=== PATIENT | female | born 1980 | race African-American/Black ===

== ENCOUNTER → 2018-08-31 13:18 | Outpatient (CLI) | payer BC, SELFPAY ==
--- NOTE | 2018-08-31 13:22 | US_ITS ---
US transvaginal HISTORY: Heavy vaginal bleeding ITS.REASON: US T/V- Abnormal Bleeding ORDERING PHYSICIAN: Murali Lakhani MD PATIENT AGE: 38 years Comparison: None FINDINGS: The uterus is retroverted and measures 7.7 x 5 x 6.2 cm. There is a lobular area of isoechogenicity in the mid aspect of the uterus measuring approximately 1 x 1 cm. There is fluid-filled endometrial canal which measures 1.5 cm in thickness. The canal measures 2.9 cm in width. The left ovary is 3.4 x 2 cm. There are small follicles. Blood flow is present. The right ovary is 2.7 x 1.8 cm and contains small follicles with blood flow noted. No cul-de-sac fluid evident. IMPRESSION: Lobular isoechoic nodule noted within the uterine canal measuring 1 cm. Endometrial canal is fluid-filled and is dilated. This finding could be due to an endometrial polyp. Retained products of conception or a blood clot is also a consideration.
== END ==
PROVIDERS: PCP Family Medicine; Visit Provider Nurse Practitioner Obstetrics & Gynecology
DX: N93.9 Abnormal uterine and vaginal bleeding, unspecified (principal)
CPT/HCPCS: 76830

== ENCOUNTER → 2018-09-07 12:08 | Outpatient (CLI) | payer BC, SELFPAY ==
[2018-09-07 12:38] LABS: Basophils % 0.2 % (0.1-2.0); Eosinophils # 0.1 K/mm3 (0.0-0.4); Eosinophils % 3.5 % (0.1-12.0); Hematocrit 32.8 % (37.0-47.0); Hemoglobin 9.8 g/dL (12.2-16.2); Lymphocytes # 1.4 K/mm3 (0.7-4.5); Lymphocytes % 34.4 % (10-50); Mean Corpuscular HGB Conc 30.1 g/dL (31.8-35.4); Mean Corpuscular Hemoglobin 22.4 pg (27.0-31.2); Mean Corpuscular Volume 74.5 fl (81-99); Mean Platelet Volume 7.2 fl (7.4-10.4); Monocytes # 0.2 K/mm3 (0.1-1.0); Monocytes % 5.8 % (1.7-9.3); Neutrophils # 2.2 K/mm3 (1.8-7.8); Neutrophils % 56.1 % (37.0-80.0); Platelet Count 391 K/mm3 (142-424); Red Cell Distribution Width 17.7 % (11.5-17.5); White Blood Count 3.9 K/mm3 (4.8-10.8)
[2018-09-07 13:25] LABS: HCG Qualitative, Serum Negative (Negative)
[2018-09-07 13:40] LABS: Anion Gap 12.8 mEq/L (5-15); Blood Urea Nitrogen 12 mg/dL (7-18); Calcium 9.2 mg/dL (8.5-10.1); Carbon Dioxide 26 mmol/L (21.0-32.0); Chloride 105 mmol/L (98-107); Creatinine,Serum 0.57 mg/dL (0.55-1.02); Estimated Glomerular Filt Rate 119 ml/min (>60); GFR (African American) 144 ML/MIN (>60); Glucose 87 mg/dL (74-106); Potassium 3.8 mmoL/L (3.5-5.1); Sodium 140 mmol/L (136-145); T4 (Thyroxine) 7.3 ug/dl (4.7-13.3); Triiodothryronine (T3) Uptake 28 % (31-39)
== END ==
PROVIDERS: Visit Provider Nurse Practitioner Obstetrics & Gynecology
DX: Z01.818 Encounter for other preprocedural examination (principal); L65.9 Nonscarring hair loss, unspecified; R53.82 Chronic fatigue, unspecified
CPT/HCPCS: 36415; 80048; 84436; 84443; 84479; 84481; 84703; 85025

== ENCOUNTER 2020-08-10 19:19 | Emergency (ER) | payer BC, SELFPAY ==
[2020-08-10 19:35] VITALS: BP 109/89; PULSE 87; RESP 20; TEMP 37; O2SAT 98; BMI 22.4
--- NOTE | 2020-08-10 19:56 | HMH.EDUTC ---
[facility] [place] Clinical Impression: Encounter for laboratory testing for COVID-19 virus Disposition: Home, Self-Care Condition on Discharge: Good Instructions: DI for COVID-19 (Suspected or Confirmed ), Coronavirus Disease 2019, Preventing the Spread of Coronavirus Discharge Instructions Additional Instructions: *Monitor Temp, Over the counter Motrin or Tylenol as directed/as needed Tylenol every 4 hours and Motrin every 6 hours (as long as your family doctor has told you that you can take it) for fever or pain. and straight to ER if unable to lower temp less than 101.0 after medication given Follow up IMMEDIATELY for new or worsening symptoms or no Noticeable improvement over the next 48-72 hours. 911 for difficulty breathing or swallowing You were tested for today for COVID19 your test result should be back in the next 24-48 hours, you may call to the [facility] to see if your test results are back in the next 48 hours [phone] [facility] hours are 9am-9pm You was given a handout with instructions for Self Quarantine and Self isolation for while you wait on test results and what to do if they are positive If you are positive the Health Dept will be contacting you also Referrals: Jean Claude Leal MD [Primary Care Provider] - As needed Time of Disposition: 19:56 Medical Decision Making - Juan Inquiry Pt receiving controlled substance: No Juan was queried for this patient: No Vital Signs: 08/10/20 19:35 Temperature 98.6 F Temperature Source Oral Pulse Rate [Right Brachial] 87 Respiratory Rate 20 Blood Pressure [Right Arm] 109/89 L Blood Pressure Mean [Right Arm] 95 Blood Pressure Source [Right Arm] Automatic Cuff Blood Pressure Position [Right Arm] Sitting 02 Sat by Pulse Oximetry 98 Oxygen Delivery Method Room Air Orders (Tests/Meds): ORDERS Category Date Time Status Covid-19 Nasal PCR ([facility]) Routine Lab 08/10/20 19:30 Received [facility] [place] HPI - General Stated complaint: Covid 19 Test Time Seen by Provider: 08/10/20 19:56 Mode of Arrival: Ambulatory Source of Information: Patient Limitations: No Limitations Description of Symptoms (Recalled from Triage Doc. by RN): REQUESTING COVID TEST; DENIES EXPOSURE OR SYMPTOMS HEENT Symptoms (Recalled from RN notes): No Resp Symptoms (Recalled from RN notes): No Skin Symptoms (Recalled from RN notes): No MS Symptoms (Recalled from RN notes): No Functional Status (Recalled from RN notes): WNL - History of Present Illness Provider Complaint: Patient states that she wanted to get tested for COVID States that she has not had any symptoms and no known exposures but she took her son to a college and was around some people that she didnt know so she wanted to get tested - Related Data Home Medications Medication Instructions Recorded Confirmed buspirone 7.5 mg tablet 7.5 mg PO DAILY 30 Days #60 tab 08/31/18 09/23/18 ferrous sulfate 325 mg (65 mg 650 mg PO DAILY tab 08/31/18 09/23/18 iron) tablet norethindrone 1 mg-ethin. 1 cap PO DAILY 09/07/18 09/23/18 estradiol 20 mcg (24)-iron 75 mg (4) capsule Allergies Allergy/AdvReac Type Severity Reaction Status Date / Time No Known Allergies Allergy Verified 09/23/18 10:45 - Worker's Comp Is this a Worker's Comp case?: No [facility] History - Hepatitis A Screen Drug use history?: No High risk sexual behaviors?: No History of sexually transmitted infection?: No Currently employed?: No Childcare worker?: No Do you have indoor plumbing?: Yes Do you have electricity?: Yes Attestation statement:: This patient has been screened for Hepatitis A risk factors. I have reviewed the patient's past medical history: Yes Medical History: Reports:: Anxiety, Depression Denies:: Cancer, Diabetes Mellitus Type 1, Diabetes Mellitus Type 2, Heart Murmur, Internal Pacemaker, MRSA, Seizures Other Medical History: Reports: Anemia. Denies: Blood Transfusion Reaction Comment: Intracranial Bleed 2010 Other Surgeries: Yes:
[2020-08-10 19:59] VITALS: BP 109/89; PULSE 87; RESP 20; TEMP 37; O2SAT 98
== END 2020-08-10 20:00 | disposition home or self-care (01) ==
PROVIDERS: Emergency Provider Nurse Practitioner; PCP Family Medicine
DX: Z20.822 Contact with and (suspected) exposure to COVID-19 (principal); F41.8 Other specified anxiety disorders
CPT/HCPCS: 99202; G0463; U0003

== ENCOUNTER 2020-10-08 14:45 | Emergency (ER) | payer BC, SELFPAY ==
[2020-10-08 14:50] VITALS: BP 114/87; PULSE 60; RESP 14; TEMP 37.1; O2SAT 99; BMI 23.3
--- NOTE | 2020-10-08 15:24 | HMH.EDUTC ---
[facility] Disposition Clinical Impression: Exposure to COVID-19 virus, Viral syndrome Disposition: Home, Self-Care Condition on Discharge: Good Instructions: Preventing the Spread of Coronavirus Discharge Instructions Additional Instructions: Drink plenty of fluids. Take tylenol or ibuprofen for pain or fever. Take the medications as directed. Follow up with your regular doctor. GO TO THE ER FOR ANY WORSENING SYMPTOMS Referrals: Jean Claude Leal MD [Primary Care Provider] - Time of Disposition: 15:53 Medical Decision Making - Medical Records Medical records reviewed: No: I reviewed the patient's medical records. - Juan Inquiry Pt receiving controlled substance: No Vital Signs: 10/08/20 14:50 Temperature 98.7 F Temperature Source Oral Pulse Rate [Right Brachial] 60 Respiratory Rate 14 Blood Pressure [Right Arm] 114/87 Blood Pressure Mean [Right Arm] 96 Blood Pressure Source [Right Arm] Automatic Cuff Blood Pressure Position [Right Arm] Sitting 02 Sat by Pulse Oximetry 99 Oxygen Delivery Method Room Air Orders (Tests/Meds): ORDERS Category Date Time Status Covid-19 Nasal PCR ([facility]) Routine Lab 10/08/20 15:00 Received [facility] HPI - General Stated complaint: cov test Time Seen by Provider: 10/08/20 15:24 Mode of Arrival: Ambulatory Source of Information: Patient Limitations: No Limitations Description of Symptoms (Recalled from Triage Doc. by RN): COVID TEST D/T EXPOSURE. C/O HEADACHE AND SORE THROAT HEENT Symptoms (Recalled from RN notes): Yes Resp Symptoms (Recalled from RN notes): No Skin Symptoms (Recalled from RN notes): No MS Symptoms (Recalled from RN notes): No Functional Status (Recalled from RN notes): WNL - History of Present Illness Provider Complaint: Her son tested positive for covid yesterday. She states that she has had a headache for the past 2 days. She denies any fever or chills. - Related Data Home Medications Medication Instructions Recorded Confirmed buspirone 7.5 mg tablet 7.5 mg PO DAILY 30 Days #60 tab 08/31/18 09/23/18 ferrous sulfate 325 mg (65 mg 650 mg PO DAILY tab 08/31/18 09/23/18 iron) tablet norethindrone 1 mg-ethin. 1 cap PO DAILY 09/07/18 09/23/18 estradiol 20 mcg (24)-iron 75 mg (4) capsule Allergies Allergy/AdvReac Type Severity Reaction Status Date / Time No Known Allergies Allergy Verified 09/23/18 10:45 - Worker's Comp Is this a Worker's Comp case?: No [facility] History - Hepatitis A Screen Drug use history?: No High risk sexual behaviors?: No History of sexually transmitted infection?: No Currently employed?: No Childcare worker?: No Do you have indoor plumbing?: Yes Do you have electricity?: Yes Attestation statement:: This patient has been screened for Hepatitis A risk factors. I have reviewed the patient's past medical history: Yes Medical History: Reports:: Anxiety, Depression Denies:: Cancer, Diabetes Mellitus Type 1, Diabetes Mellitus Type 2, Heart Murmur, Internal Pacemaker, MRSA, Seizures Other Medical History: Reports: Anemia. Denies: Blood Transfusion Reaction Comment: Intracranial Bleed 2009 Other Surgeries: Yes: , Tubal Ligation. 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
[2020-10-08 15:54] VITALS: BP 114/87; PULSE 60; RESP 14; TEMP 37.1; O2SAT 99
== END 2020-10-08 16:00 | disposition home or self-care (01) ==
PROVIDERS: Emergency Provider Nurse Practitioner Family; PCP Family Medicine
DX: Z20.822 Contact with and (suspected) exposure to COVID-19 (principal); B34.9 Viral infection, unspecified; F41.8 Other specified anxiety disorders
CPT/HCPCS: 99202; G0463; U0003

== ENCOUNTER → 2021-01-29 17:11 | Outpatient (CLI) | payer BC, SELFPAY ==
--- NOTE | 2021-01-29 17:23 | XR_ITS ---
PROCEDURE: XR TIBIA FIBULA RT 2V CLINICAL INDICATION: INJURY OF RIGHT LOWER LEG COMPARISON: No exams were available for comparison FINDINGS: No fracture or dislocation. No lytic or blastic change. There is normal mineralization. The joint spaces are well-preserved. No significant degenerative/arthritic changes. No erosive changes evident. Other findings:Small well-circumscribed soft tissue calcification present in the subcutaneous region medial to the medial femoral condyle and may be due to phleboliths IMPRESSION: No acute findings. Dictated by: Alessandro Pompa MD 01/29/2021 17:34 Alessandro Pompa MD in [place] 01/29/2021 17:34
== END ==
PROVIDERS: PCP Nurse Practitioner Family; Visit Provider Nurse Practitioner Family
DX: S89.91XA Unspecified injury of right lower leg, initial encounter (principal)
CPT/HCPCS: 73590

== ENCOUNTER 2021-04-28 15:39 | Emergency (ER) | payer BC, SELFPAY ==
[2021-04-28 16:05] VITALS: BP 108/74; PULSE 77; RESP 18; TEMP 36.7; O2SAT 99; BMI 24.2
--- NOTE | 2021-04-28 16:47 | HMH.EDUTC ---
[facility] [place] Disposition Clinical Impression: Poison rachel dermatitis Disposition: Home, Self-Care Condition on Discharge: Good Instructions: DI for Poison Rachel Allergy, Poison Rachel, Poison [place], Poison [place] Additional Instructions: Use topical steroid cream on area Over the counter Benadryl may help with itching Over the counter calamine lotion may help with itching and dry up the rash Return if needed Follow up with Family Doctor if rash worsens or continues to spread Referrals: Gloria Leonardo APRN [Primary Care Provider] - As needed Time of Disposition: 17:00 Medical Decision Making - Juan Inquiry Pt receiving controlled substance: No Juan was queried for this patient: No Vital Signs: 04/28/21 16:05 Temperature 98.1 F Temperature Source Oral Pulse Rate [Left Brachial] 77 Respiratory Rate 18 Blood Pressure [Left Arm] 108/74 L Blood Pressure Mean [Left Arm] 85 Blood Pressure Source [Left Arm] Automatic Cuff Blood Pressure Position [Left Arm] Sitting 02 Sat by Pulse Oximetry 99 Oxygen Delivery Method Room Air Medical Decision Narrative: Patient states that she has steriod cream at home that they give her for atopic dermatitis and eczema Patient educated that she can use that cream on this area as well for treatment [facility] [place] HPI - General Stated complaint: rash on right wrist Time Seen by Provider: 04/28/21 16:47 Mode of Arrival: Ambulatory Source of Information: Patient Limitations: No Limitations Description of Symptoms (Recalled from Triage Doc. by RN): PATIENT C/O ITCHY RASH TO RIGHT WRIST THAT STARTED WEDNESDAY EVENING AND BECAME WORSE ON WEDNESDAY HEENT Symptoms (Recalled from RN notes): No Resp Symptoms (Recalled from RN notes): No Skin Symptoms (Recalled from RN notes): Yes MS Symptoms (Recalled from RN notes): No Functional Status (Recalled from RN notes): WNL - History of Present Illness Provider Complaint: Patient states she noticed she had rash on her right wrist that started on Wednesday it was fluid filled and itchy States that everyone has told her that it looks like poison rachel but she wasnt sure she has never had it before States that today it was still itching so she came in to get it looked at - Related Data Home Medications Medication Instructions Recorded Confirmed Topiramate [Topamax] 25 mg PO DAILYP PRN 04/28/21 04/28/21 Allergies Allergy/AdvReac Type Severity Reaction Status Date / Time No Known Allergies Allergy Verified 09/23/18 10:45 - Worker's Comp Is this a Worker's Comp case?: No [facility] History - Hepatitis A Screen Drug use history?: No High risk sexual behaviors?: No History of sexually transmitted infection?: No Currently employed?: No Childcare worker?: No Do you have indoor plumbing?: Yes Do you have electricity?: Yes Attestation statement:: This patient has been screened for Hepatitis A risk factors. I have reviewed the patient's past medical history: Yes Medical History: Reports:: Anxiety, Depression Denies:: Cancer, Diabetes Mellitus Type 1, Diabetes Mellitus Type 2, Heart Murmur, Internal Pacemaker, MRSA, Seizures Other Medical History: Reports: Anemia. Denies: Blood Transfusion Reaction Comment: Intracranial Bleed 2009 Other Surgeries: Yes: , Tubal Ligation. 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
[2021-04-28 16:53] VITALS: BP 108/74; PULSE 77; RESP 18; TEMP 36.7; O2SAT 99
== END 2021-04-28 17:05 | disposition home or self-care (01) ==
PROVIDERS: Emergency Provider Nurse Practitioner; PCP Nurse Practitioner Family
DX: L23.7 Allergic contact dermatitis due to plants, except food (principal); F41.8 Other specified anxiety disorders
CPT/HCPCS: 99202; G0463

== ENCOUNTER → 2021-07-28 16:16 | Outpatient (CLI) | payer BC, SELFPAY | PROVIDERS: PCP Family Medicine; Visit Provider Nurse Practitioner | DX: U07.1 COVID-19 (principal) | CPT/HCPCS: C9803; U0003; U0005 ==

== ENCOUNTER 2022-02-24 13:34 | Emergency (ER) | payer BC, SELFPAY ==
[2022-02-24 14:26] VITALS: BP 111/72; PULSE 84; RESP 16; TEMP 36.8; O2SAT 100; BMI 23.3
[2022-02-24 14:26] LABS: Adenovirus,PCR Not Detected (NotDetected); Bordetella Pertussis Not Detected (NotDetected); Chlamydophila Pneumoniae, PCR Not Detected (NotDetected); Coronavirus 229E Not Detected (NotDetected); Coronavirus NL63 Not Detected (NotDetected); Coronavirus OC43 Not Detected (NotDetected); Coronovirus HKU1,PCR Not Detected (NotDetected); Human Metapneumovirus Not Detected (NotDetected); Influenza A, PCR Not Detected (NotDetected); Influenza AH1, 2009 Not Detected (NotDetected); Influenza AH1, PCR Not Detected (NotDetected); Influenza AH3,PCR Not Detected (NotDetected); Influenza B, PCR Not Detected (NotDetected); Mycoplasma Pneumoniae, PCR Not Detected (NotDetected); Parainfluenza 1, PCR Not Detected (NotDetected); Parainfluenza 2, PCR Not Detected (NotDetected); Parainfluenza 3, PCR Not Detected (NotDetected); Parainfluenza 4, PCR Not Detected (NotDetected); Respiratory Syncytial Virus Not Detected (NotDetected); Rhinovirus/Enterovirus Not Detected (NotDetected)
--- NOTE | 2022-02-24 14:29 | HMH.EDUTC ---
[facility] [place] Disposition Clinical Impression: Viral syndrome Sinusitis Qualifiers: Sinusitis location: unspecified location Chronicity: acute Recurrence: non-recurrent Qualified Code(s): J01.90 - Acute sinusitis, unspecified Disposition: Home, Self-Care Condition on Discharge: Good Instructions: DI for Sinusitis, DI for COVID-19 (Suspected or Confirmed ), Preventing the Spread of Coronavirus Discharge Instructions Additional Instructions: Drink plenty of fluids. Take tylenol or ibuprofen for pain or fever. Take the medications as directed. Follow up with your regular doctor. GO TO THE ER FOR ANY WORSENING SYMPTOMS Quarantine until you know the results of your covid-19 test. Notify your school or workplace of your results and follow their instructions regarding return to work/school. Prescriptions: Benzonatate [Benzonatate 100mg cap] 100 mg PO TIDP PRN #30 cap PRN Reason: Cough Transmission Status: Received by [facility] #[id number] predniSONE [Deltasone 10mg tablet] 10 mg PO BID 3 Days #6 tab Transmission Status: Received by [facility] #[id number] Cefdinir [Omnicef 300mg Capsule] 300 mg PO BID #20 cap Transmission Status: Received by [facility] #[id number] Referrals: Jean Claude Leal MD [Primary Care Provider] - Forms: Work/School Release Time of Disposition: 14:31 Medical Decision Making - Medical Records Medical records reviewed: No: I reviewed the patient's medical records. - Juan Inquiry Pt receiving controlled substance: No Vital Signs: 02/24/22 14:26 02/24/22 14:39 Temperature 98.2 F 98.2 F Temperature Source Oral Pulse Rate 84 Pulse Rate [Left] 84 Respiratory Rate 16 16 Blood Pressure 111/72 Blood Pressure [Right Arm] 111/72 Blood Pressure Mean [Right Arm] 85 02 Sat by Pulse Oximetry 100 Orders (Tests/Meds): ORDERS Category Date Time Status Full Resp Panel w/COVID ([facility]) Routine Lab 02/24/22 14:17 Received [facility] [place] HPI - General Stated complaint: covid test Time Seen by Provider: 02/24/22 14:29 Mode of Arrival: Ambulatory Source of Information: Patient Limitations: No Limitations Description of Symptoms (Recalled from Triage Doc. by RN): patient comes in for covid test. sister tested positive on wednesday. patient has had body aches, chills, sore throat, headache, cough since wednesday HEENT Symptoms (Recalled from RN notes): Yes Resp Symptoms (Recalled from RN notes): Yes Skin Symptoms (Recalled from RN notes): No MS Symptoms (Recalled from RN notes): No Functional Status (Recalled from RN notes): n/a - History of Present Illness Provider Complaint: She states that she has felt bad for the past 3 days. She has had sore throat, chills, body aches and sinus congestion. She had a negative covid-19 and strep test done yesterday. - Related Data Home Medications Medication Instructions Recorded Confirmed Topiramate [Topamax] 25 mg PO DAILYP PRN 04/28/21 04/28/21 Previous Rx's Medication Instructions Recorded Benzonatate [Benzonatate 100mg 100 mg PO TIDP PRN #30 cap 02/24/22 cap] Cefdinir [Omnicef 300mg Capsule] 300 mg PO BID #20 cap 02/24/22 predniSONE [Deltasone 10mg tablet] 10 mg PO BID 3 Days #6 tab 02/24/22 Allergies Allergy/AdvReac Type Severity Reaction Status Date / Time No Known Allergies Allergy Verified 02/24/22 14:29 - Worker's Comp Is this a Worker's Comp case?: No [facility] History - Hepatitis A Screen Attestation statement:: This patient has been screened for Hepatitis A risk factors. I have reviewed the patient's past medical history: Yes Medical History: Reports:: Anxiety, Depression Denies:: Cancer, Diabetes Mellitus Type 1, Diabetes Mellitus Type 2, Heart Murmur, Internal Pacemaker, MRSA, Seizures Other Medical History: Reports: Anemia. Denies: Blood Transfusion Reaction Comment: Intracranial Bleed 2009 Other Surgeries: Yes: , Tubal Ligation. No: Pacemaker Amputation: No
[2022-02-24 14:39] VITALS: BP 111/72; PULSE 84; RESP 16; TEMP 36.8
[2022-02-24 21:53] LABS: Coronavirus 19, PCR Detected (NotDetected)
== END 2022-02-24 14:40 | disposition home or self-care (01) ==
PROVIDERS: Emergency Provider Nurse Practitioner Family; PCP Family Medicine
DX: U07.1 COVID-19 (principal); J01.90 Acute sinusitis, unspecified; J02.9 Acute pharyngitis, unspecified; M79.10 Myalgia, unspecified site; R51.9 Headache, unspecified; F32.A Depression, unspecified; F41.9 Anxiety disorder, unspecified; Z79.52 Long term (current) use of systemic steroids; Z82.49 Family history of ischemic heart disease and other diseases of the circulatory system; Z82.5 Family history of asthma and other chronic lower respiratory diseases; Z83.3 Family history of diabetes mellitus
CPT/HCPCS: 87581; 87632; 87798; 99213; C9803; G0463; U0003; U0005

== ENCOUNTER → 2022-08-28 15:40 | Outpatient (CLI) | payer BC, SELFPAY ==
--- NOTE | 2022-08-28 15:43 | MR_ITS ---
PROCEDURE INFORMATION: Exam: MR Head Without Contrast Exam date and time: 08/28/2022 4:07 PM Age: 42 years old Clinical indication: Pain; Headache; Migraine; With aura; Does not respond to medication; Severity not specified; Additional info: Right sided headache. PT also said headaches are migraines and clusters. Nausea associated with them. TECHNIQUE: Imaging protocol: Magnetic resonance imaging of the head without contrast. COMPARISON: BRW/O MRI-BRAIN W/O 11/12/2015 1:39 PM FINDINGS: Brain: Normal. No acute infarct. No hemorrhage. No significant white matter disease. No edema. Cerebral ventricles: Normal. No ventriculomegaly. Bones/joints: Unremarkable. Paranasal sinuses: Normal as visualized. No acute sinusitis. Mastoid air cells: Normal as visualized. No mastoid effusion. Orbital cavities: Unremarkable. Soft tissues: Unremarkable. IMPRESSION: No acute findings.
== END ==
LOC: RAD 15:40
PROVIDERS: PCP Family Medicine; Visit Provider Nurse Practitioner Family
DX: R51.9 Headache, unspecified (principal); R42 Dizziness and giddiness
CPT/HCPCS: 70551

== ENCOUNTER → 2023-01-25 16:26 | Outpatient (CLI) | payer BC, SELFPAY ==
--- NOTE | 2023-01-25 16:29 | CA_ITS ---
FINAL REPORT TECHNIQUE: Color Doppler, duplex Doppler and compression sonography of the right lower extremity venous system was performed. 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 Her right leg will swell from the knee down after working. She denies any recent trauma. Injury to her right leg 1 year ago. No history of DVT. FINDINGS: There is no evidence of deep venous thrombosis from the level of the groin to the calf. The veins are patent and compressible. IMPRESSION: No evidence of deep venous thrombosis right lower extremity. Reviewed, Interpreted and Dictated by Genaro Grossman III, MD Transcribed by Colleen Martines Authenticated and . [facility]
== END ==
LOC: RT 16:27
PROVIDERS: PCP Family Medicine; Visit Provider Nurse Practitioner Family
DX: M79.604 Pain in right leg (principal); M79.89 Other specified soft tissue disorders
CPT/HCPCS: 93971

== ENCOUNTER → 2023-02-15 11:07 | Outpatient (CLI) | payer BC, SELFPAY ==
--- NOTE | 2023-02-15 11:10 | MR_ITS ---
FINAL REPORT TECHNIQUE: Multiplanar and multisequence imaging the right knee was obtained without contrast. CLINICAL HISTORY: SWELLING OF RIGHT LOWER EXTREMITY. POSTERIOR KNEE PAIN FINDINGS: Bones: There is lateral patellar subluxation without dislocation. There is no acute fracture or marrow edema. The joint space is preserved. There are no full thickness cartilage defects. Menisci: There is a horizontal tear at the posterior horn of the medial meniscus. Anterior horn and lateral meniscus are intact. Ligaments: No cruciate or collateral ligament tear is present. Tendons/Muscles: The quadriceps and patellar tendons are within normal limits. The biceps femoris tendon and iliotibial tract are intact. The popliteus tendon is normal. Other: There is no joint effusion. Remaining soft tissues are normal. IMPRESSION: Lateral patellar subluxation. Tear of the posterior horn of the medial meniscus. Reviewed, Interpreted and Dictated by Martha Cerna MD Transcribed by Lory Medeiros Authenticated and [facility]
== END ==
PROVIDERS: PCP Family Medicine; Visit Provider Nurse Practitioner Family
DX: M25.561 Pain in right knee (principal); M25.461 Effusion, right knee; M79.89 Other specified soft tissue disorders
CPT/HCPCS: 73721

== ENCOUNTER 2023-02-16 14:20 | Outpatient (RCR) | payer BC, SELFPAY | END 2023-02-16 15:10 | disposition home or self-care (01) | LOC: PT 14:20 | PROVIDERS: Visit Provider Nurse Practitioner Family | DX: M25.561 Pain in right knee (principal); S83.001A Unspecified subluxation of right patella, initial encounter; S83.281A Other tear of lateral meniscus, current injury, right knee, initial encounter | CPT/HCPCS: 97760 ==

== ENCOUNTER 2023-05-11 16:30 | Outpatient (RCR) | payer BC, SELFPAY | END 2023-05-11 16:35 | disposition home or self-care (01) | LOC: PT 16:30 | PROVIDERS: PCP Family Medicine; Visit Provider Physician Assistant | DX: S83.001A Unspecified subluxation of right patella, initial encounter (principal); M25.561 Pain in right knee; S83.241A Other tear of medial meniscus, current injury, right knee, initial encounter | CPT/HCPCS: 97010; 97014; 97016; 97035; 97110; 97163; 97164; 97530; G0283 ==

== ENCOUNTER 2023-08-30 06:39 | Outpatient (CLI) | payer BC, SELFPAY ==
[2023-08-30 12:34] LABS: Chloride 102 mmol/L (98-107); Sodium 138 mmol/L (136-145)
[2023-08-30 12:35] LABS: Basophils % 0.5 % (0.1-2.0); Eosinophils # 0.1 K/mm3 (0.0-0.4); Eosinophils % 1.8 % (0.1-12.0); Hematocrit 45.1 % (37.0-47.0); Hemoglobin 14.4 g/dL (12.2-16.2); Lymphocytes # 1.3 K/mm3 (0.7-4.5); Lymphocytes % 27.8 % (10-50); Mean Corpuscular HGB Conc 32.1 g/dL (31.8-35.4); Mean Corpuscular Hemoglobin 28.5 pg (27.0-31.2); Mean Platelet Volume 8.3 fl (7.4-10.4); Monocytes # 0.2 K/mm3 (0.1-1.0); Monocytes % 4.9 % (1.7-9.3); Neutrophils # 2.9 K/mm3 (1.8-7.8); Platelet Count 328 K/mm3 (142-424); Red Blood Count 5.06 M/mm3 (4.20-5.40); Red Cell Distribution Width 13.4 % (11.5-17.5); White Blood Count 4.5 K/mm3 (4.8-10.8)
[2023-08-30 12:37] LABS: Alanine Aminotransferase 13 U/L (12-78); Albumin Level 4.3 g/dl (3.5-5.0); Albumin/Globulin Ratio 1.3 (1.1-1.8); Alkaline Phosphatase 44 U/L (38-126); Aspartate Amino Transferase 34 U/L (14-36); Bilirubin,Total 0.5 mg/dl (0.2-1.3); Blood Urea Nitrogen 10 mg/dl (7-17); Calcium 9.6 mg/dl (8.4-10.2); Carbon Dioxide 31 mmol/L (22.0-30.0); Estimated Glomerular Filt Rate 135 ml/min (>60); GFR (African American) 164 ML/MIN (>60); Globulin 3.4 g/dL (1.3-3.2); Glucose 82 mg/dl (74-100); Magnesium 1.9 mg/dl (1.6-2.3); Total Protein,Serum 7.7 g/dl (6.3-8.2)
[2023-08-30 12:48] LABS: C-Reactive Protein 2.4 mg/L (0-4)
[2023-08-30 12:52] LABS: Troponin I < 0.01 ng/ml (0.00-0.034)
[2023-08-30 13:08] LABS: Thyroid Stimulating Hormone 0.55 uIU/mL (0.465-4.68)
[2023-08-30 13:13] LABS: Ferritin 14.4 ng/ml (6.24-137)
[2023-08-30 13:33] LABS: Vitamin B12 656 pg/mL (239-931)
[2023-08-30 13:35] LABS: Hemoglobin A1C 4.8 % (4.0-6.0)
== END 2023-08-30 23:59 ==
LOC: LAB.DROPOF 09-01 06:40
PROVIDERS: PCP Nurse Practitioner Family; Visit Provider Nurse Practitioner Family
DX: I95.9 Hypotension, unspecified (principal); R51.9 Headache, unspecified; D64.9 Anemia, unspecified
CPT/HCPCS: 80053; 82607; 82728; 83036; 83735; 84443; 84484; 85025; 86140

== ENCOUNTER → 2023-09-30 13:14 | Outpatient (CLI) | payer BC, SELFPAY | LOC: SL 13:16 | PROVIDERS: PCP Nurse Practitioner Family; Visit Provider Nurse Practitioner Family | DX: R06.83 Snoring (principal) | CPT/HCPCS: G0399 ==

== ENCOUNTER 2023-10-11 09:20 | Outpatient (CLI) | payer BC, SELFPAY ==
--- NOTE | 2023-10-11 09:28 | CT_ITS ---
FINAL REPORT TECHNIQUE: Multiple axial CT sections were performed from the foramen magnum to the vertex. Coronal reformatted images were also obtained. Precontrast and postcontrast injection images were obtained. This study was performed with technique to keep radiation doses as low as reasonably achievable, (ALARA). Individualized dose reduction techniques using automated exposure control or adjustment of mA and/or kV according to the patient size were employed. CLINICAL HISTORY: hx of hemorrhagic cva, headaches pt c/o migraines FINDINGS: The ventricles are normal in size. There is no evidence of hemorrhage. No masses are identified. No extra-axial fluid collection is seen. The sinuses are normal. No osseous abnormality is seen on the bone window images. Postcontrast images demonstrate no abnormal enhancement. IMPRESSION: Unremarkable CT of the head with and without contrast. Reviewed, Interpreted and Dictated by Genaro Grossman III, MD Transcribed by Kenna Villarreal Authenticated and [facility]
--- NOTE | 2023-10-11 10:09 | CA_ITS ---
APPROVED REPORT EXAM: Comprehensive 2D, Doppler, and color-flow Echocardiogram Television And Radio Repairer: Jazmine Hodgson CRT Ht: 5 ft 5 in Wt: 144lbs BSA: 1.72 BP: 111/69 mmHg Indications: Abnormal ECG, CVA/TIA 2D Dimensions Left Atrium 3.13 cm LVEF (Pryor's) 53.90 % LVOT 1.94 cm (M/F) 1.5-2.5 LV Volume 86.50 mL LA Volume 22.70 mL LA Volume Index 13.20 mL/m2 (M/F) 16-34 EF AP4 57.90 % EF AP2 47.7 % EF BP 53.9 % GL Strain -16.3 % M-Mode Dimensions RVDd 2.52 cm (0.9-2.6) LVDd 4.26 cm (3.5-5.7) Ao Diam 3.13 cm (2.0-3.7) LVDs 2.87 cm (3.5-5.7) IVSd 1.04 cm (0.6-1.1) PWd 0.61 cm (0.6-1.1) EF (Teich) 61.40% FS 32.60% EDV (Teich) 81.30 mL TAPSE 2.29 (<1.7) ESV (Teich) 31.40 mL LV Diastology E Decel Time 222 (160-240 msec) E/A Ratio 1.34 MED E' 10.5 (>= 7 cm/sec) MED A' 7.90 cm/s E'/MED E' Ratio 7.11 (<= 14) LAT E' 13.2 (>= 10 cm/sec) LAT A' 12.50 cm/s E/LAT E' Ratio 5.66 (<= 14) Aortic Valve AoV Peak Arian. 92.0 (50-130 cm/s) AI PHT 391.00 ms AO Peak GR. 3.40 mmHg Mitral Valve MV E Max Arian. 75.0 (40-130 cm/s) MV A Velocity 56.0 (40-130 cm/s) E/A Ratio 1.34 MV Decel. Time 222 (160-240 ms) Tricuspid Valve TR P. Velocity 198.00 cm/s RAP Estimate 10.00 mmHg RVSP 25.70 mmHg Left Ventricle The left ventricle is normal size. The left ventricular systolic function is normal. The left ventricular ejection fraction is within the normal range. There is normal left ventricular wall thickness. There is normal LV segmental wall motion. The left ventricular diastolic function is normal. LVEF is 55%. Right Ventricle The right ventricle is normal size. The right ventricular systolic function is normal. Atria The left atrium size is normal. The right atrium size is normal. There is no Doppler evidence of interatrial shunt. Aortic Valve The aortic valve opens well. Trace aortic regurgitation. There is no aortic valvular stenosis. Mitral Valve The mitral valve is normal in structure. No evidence of mitral valve stenosis. Trace mitral regurgitation. Tricuspid Valve The tricuspid valve leaflets are thin and pliable. Mild tricuspid regurgitation. RVSP is 20-25 mmHg. Pulmonic Valve The pulmonary valve is normal in structure. Trace pulmonic regurgitation. Great Vessels The aortic root is normal in size. The ascending aorta is normal in size. IVC is normal in size and collapses >50% with inspiration. Pericardium There is no pericardial effusion. Other Information Study Quality: Adequate Conclusion Normal biventricular systolic function. Mild TR. RVSP 20-25 mmHg. Electronically signed by : Kaylie España MD 10/12/2023 20:46:44
[2023-10-11] MEDS: SODIUM CHLORIDE 0.9% 10ML SYR (RAD ONLY) 10 ML IV (10:15)
[2023-10-11] MEDS: IOPAMIDOL-300 (61%) 100ML VIAL 100 ML IV (10:15)
== END 2023-10-11 23:59 ==
LOC: RAD 09:21
PROVIDERS: PCP Nurse Practitioner Family; Visit Provider Physician Assistant
DX: Z86.73 Personal history of transient ischemic attack (TIA), and cerebral infarction without residual deficits (principal); R94.31 Abnormal electrocardiogram [ECG] [EKG]; R51.9 Headache, unspecified; W19.XXXA Unspecified fall, initial encounter
CPT/HCPCS: 70470; 93306; Q9967

== ENCOUNTER 2023-11-03 07:50 | Outpatient (CLI) | payer BC, SELFPAY ==
--- NOTE | 2023-11-03 07:51 | MR_ITS ---
FINAL REPORT CLINICAL HISTORY: HARDY/Dizziness w/Hx CVA/Bleed COMPARISON: 08/28/2022 FINDINGS: Multiplanar MR imaging of the brain was performed without and with contrast. There is no evidence of intracranial hemorrhage or mass. No abnormal extra-axial fluid collection is seen. There is a single less than 5 mm in size right frontal white matter focus of signal, that likely represents mild chronic ischemic/gliotic microvascular change, new since the prior exam. This is within normal limits for the patient's age. The ventricular size is within normal limits. There is no evidence of shift of the midline structures. The posterior fossa and brainstem have an unremarkable appearance. No area of abnormal restricted diffusion is identified. No abnormal contrast enhancement is seen. Normal major vessel vascular flow voids are noted. IMPRESSION: No acute intracranial abnormality identified. Single less than 5 mm in size right frontal white matter signal, likely mild chronic ischemic/gliotic microvascular change, normal for the patient's age. No focal enhancement or abnormal signal is otherwise visualized. Reviewed, Interpreted and Dictated by Genaro Grossman III, MD Transcribed by Colleen Martines Authenticated and . [facility]
[2023-11-03] MEDS: SODIUM CHLORIDE 0.9% 10ML SYR (RAD ONLY) 10 ML IV (08:59)
[2023-11-03] MEDS: GADOTERIDOL INJ 17ML SYRINGE 13 ML IV (08:59)
== END 2023-11-03 23:59 ==
LOC: RAD 07:51
PROVIDERS: PCP Nurse Practitioner Family; Visit Provider Specialist
DX: R51.9 Headache, unspecified (principal); Z86.73 Personal history of transient ischemic attack (TIA), and cerebral infarction without residual deficits; W19.XXXA Unspecified fall, initial encounter
CPT/HCPCS: 70553; A9576

== ENCOUNTER 2024-04-17 16:56 | Outpatient (CLI) | payer BC, SELFPAY ==
[2024-04-17 17:57] LABS: Troponin I < 0.01 ng/ml (0.00-0.034)
[2024-04-17 18:02] LABS: Basophils % 0.9 % (0.1-2.0); Eosinophils # 0.2 K/mm3 (0.0-0.4); Hematocrit 44.6 % (37.0-47.0); Hemoglobin 13.2 g/dL (12.2-16.2); Lymphocytes # 1.7 K/mm3 (0.7-4.5); Lymphocytes % 36.6 % (10-50); Mean Corpuscular HGB Conc 29.7 g/dL (31.8-35.4); Mean Corpuscular Hemoglobin 27.2 pg (27.0-31.2); Mean Corpuscular Volume 91.7 fl (81-99); Mean Platelet Volume 7.8 fl (7.4-10.4); Monocytes # 0.2 K/mm3 (0.1-1.0); Neutrophils # 2.5 K/mm3 (1.8-7.8); Neutrophils % 53.5 % (37.0-80.0); Platelet Count 348 K/mm3 (142-424); Red Blood Count 4.87 M/mm3 (4.20-5.40); White Blood Count 4.7 K/mm3 (4.8-10.8)
[2024-04-17 18:12] LABS: Thyroid Stimulating Hormone 1.31 uIU/mL (0.465-4.68)
[2024-04-17 18:16] LABS: Ferritin 8.77 ng/ml (6.24-137)
[2024-04-17 18:50] LABS: 25-OH Vitamin D, Total 17.8 ng/mL (30-100)
[2024-04-17 18:57] LABS: Vitamin B12 463 pg/mL (239-931)
[2024-04-21 18:07] LABS: Vitamin B1 84.6 nmol/L (66.5-200.0)
[2024-04-22 05:29] LABS: Zinc 65 ug/dL (44-115)
[2024-04-22 09:32] LABS: Magnesium,RBC 4.3 mg/dL (3.7-7.0)
[2024-04-22 23:07] LABS: Vitamin B6 11.5 ug/L (3.4-65.2)
== END 2024-04-17 23:59 | disposition home or self-care (01) ==
LOC: LAB 16:57
PROVIDERS: PCP Nurse Practitioner Family; Visit Provider Nurse Practitioner Family
DX: R94.31 Abnormal electrocardiogram [ECG] [EKG] (principal); D50.8 Other iron deficiency anemias; E53.9 Vitamin B deficiency, unspecified; R51.9 Headache, unspecified; R00.2 Palpitations
CPT/HCPCS: 82306; 82607; 82728; 83735; 84207; 84425; 84443; 84484; 84630; 85025

== ENCOUNTER 2024-07-19 16:20 | Outpatient (CLI) | payer BC, SELFPAY ==
[2024-07-19 16:45] LABS: Hematocrit 43.6 % (37.0-47.0); Mean Corpuscular HGB Conc 32.1 g/dL (31.8-35.4); Mean Corpuscular Hemoglobin 27.3 pg (27.0-31.2); Mean Corpuscular Volume 85.2 fl (81-99); Red Blood Count 5.12 M/mm3 (4.20-5.40); White Blood Count 5.6 K/mm3 (4.8-10.8)
[2024-07-19 16:46] LABS: Basophils % 0.5 % (0.1-2.0); Eosinophils # 0.1 K/mm3 (0.0-0.4); Eosinophils % 1.6 % (0.1-12.0); Lymphocytes # 1.9 K/mm3 (0.7-4.5); Lymphocytes % 34.2 % (10-50); Monocytes # 0.3 K/mm3 (0.1-1.0); Monocytes % 5.7 % (1.7-9.3); Neutrophils # 3.3 K/mm3 (1.8-7.8); Neutrophils % 57.8 % (37.0-80.0); Platelet Count 337 K/mm3 (142-424); Red Cell Distribution Width 13.3 % (11.5-17.5)
[2024-07-19 17:15] LABS: 25-OH Vitamin D, Total 34.6 ng/mL (30-100)
[2024-07-19 17:47] LABS: Vitamin B12 559 pg/mL (239-931)
[2024-07-19 21:51] LABS: Ferritin 7.25 ng/ml (6.24-137)
[2024-07-25 01:07] LABS: Magnesium,RBC 4.1 mg/dL (3.7-7.0)
== END 2024-07-19 23:59 | disposition home or self-care (01) ==
LOC: LAB 16:21
PROVIDERS: PCP Nurse Practitioner Family; Visit Provider Nurse Practitioner Family
DX: G43.909 Migraine, unspecified, not intractable, without status migrainosus (principal); D50.8 Other iron deficiency anemias; E53.9 Vitamin B deficiency, unspecified; R79.89 Other specified abnormal findings of blood chemistry
CPT/HCPCS: 36415; 82306; 82607; 82728; 83735; 85025

== ENCOUNTER 2024-08-07 09:04 | Outpatient (CLI) | payer BC, SELFPAY ==
--- NOTE | 2024-08-07 09:05 | MM_ITS ---
PROCEDURE INFORMATION: Exam: US Left Breast, Complete MG Bilateral Diagnostic Breast Tomosynthesis Exam date and time: 08/07/2024 9:27 AM Age: 44 years old Clinical indication: Concern for left breast lump. TECHNIQUE: Imaging protocol: Complete ultrasound of all four quadrants of the left breast and the retroareolar regions, including ultrasound of the axilla when performed. Bilateral Diagnostic tomosynthesis and 2D mammography including computer-aided detection (CAD) when performed. Unilateral or bilateral exam. Triangular marker placed on palpable concern in the left breast with spot compression added. COMPARISON: MG MM DIG MAMM BI DX W/CAD 08/07/2024 8:51 AM FINDINGS: MAMMOGRAPHY: Breast mammogram findings: Breast composition: The breasts are heterogeneously dense, which may obscure small masses. Mass: Scattered bilateral oval masses, which are larger on the right, in the upper inner aspect, about 11-12 o'clock anterior to middle 3rd, 2-6 cm from the nipple, measuring up to 3 cm, CC image [id number] frame 21 and MLO image 1106 for frame 18 and in the upper inner quadrant, anterior to middle 3rd, 2-4 cm from the nipple, cc image 1718 frame 21 and MLO image 1164 frame 40. On the left, corresponding to the palpable concern are 2 oval partly visualized masses, best seen in the MLO projection, measuring 1.3 and 1.0 cm, MLO image 1372 frame 13. Architectural distortion: None. Calcifications: No suspicious calcifications. Asymmetric density: None. Skin thickening: None. Axillary adenopathy: None. ULTRASOUND: Breast ultrasound findings: Left sonography, all 4 quadrants, retroareolar and axilla. At the palpable concern at 2 o'clock 4 cm from the nipple, anechoic avascular cyst measuring 1.2 x 0.8 x 1.3 cm. Scattered subcentimeter simple and complicated avascular at 12 o'clock measuring 0.3 x 0.3 x 0.3 cm; at 12 o'clock 1 cm from the nipple measuring 1.2 x 1.2 x 0.6 cm; at 1 o'clock 6 cm from the nipple measuring 0.6 x 0.5 x 0.6 cm; at 2 o'clock 2 cm from the nipple measuring 0.7 x 0.8 x 0.7 cm; at 5 o'clock 1 cm from the nipple measuring 0.8 x 1.0 x 0.7 cm. Sonographically unremarkable axillary lymph node. IMPRESSION: See comments Patient's lump corresponds to a simple 1.2 cm cyst on the left at 2 o'clock, with multiple probably benign cystic changes on the left, with six-month follow-up left sonography recommended unless otherwise clinically indicated.Further evaluation of a palpable abnormality should be based on clinical grounds regardless of radiographic findings or lack thereof. Patient will be recalled for right sonography for further evaluation of masses on the right. ASSESSMENT: [BI-RADS Category 0: Incomplete: Need Additional Imaging Evaluation.
== END 2024-08-07 23:59 | disposition home or self-care (01) ==
LOC: RAD 09:05
PROVIDERS: PCP Orthopaedic Surgery; Visit Provider Nurse Practitioner Family
DX: N63.25 Unspecified lump in the left breast, overlapping quadrants (principal)
CPT/HCPCS: 76641; 77062; 77066; G0279

== ENCOUNTER 2024-08-14 16:25 | Outpatient (CLI) | payer BC, SELFPAY ==
[2024-08-14 17:37] LABS: Basophils % 0.4 % (0.1-2.0); Eosinophils # 0.1 K/mm3 (0.0-0.4); Eosinophils % 1.7 % (0.1-12.0); Hematocrit 41.9 % (37.0-47.0); Hemoglobin 13.3 g/dL (12.2-16.2); Lymphocytes # 1.7 K/mm3 (0.7-4.5); Lymphocytes % 35.1 % (10-50); Mean Corpuscular HGB Conc 31.7 g/dL (31.8-35.4); Mean Corpuscular Hemoglobin 27.3 pg (27.0-31.2); Mean Platelet Volume 9.4 fl (7.4-10.4); Monocytes # 0.3 K/mm3 (0.1-1.0); Monocytes % 5.6 % (1.7-9.3); Neutrophils # 2.8 K/mm3 (1.8-7.8); Platelet Count 324 K/mm3 (142-424); Red Blood Count 4.87 M/mm3 (4.20-5.40); Red Cell Distribution Width 13.7 % (11.5-17.5); White Blood Count 4.8 K/mm3 (4.8-10.8)
[2024-08-14 18:56] LABS: Ferritin 9.93 ng/ml (6.24-137)
== END 2024-08-14 23:59 | disposition home or self-care (01) ==
LOC: LAB.DROPOF 08-15 12:59
PROVIDERS: PCP Nurse Practitioner Family; Visit Provider Nurse Practitioner Family
DX: D50.8 Other iron deficiency anemias (principal)
CPT/HCPCS: 82728; 85025

== ENCOUNTER 2024-09-11 16:33 | Outpatient (CLI) | payer BC, SELFPAY ==
[2024-09-11 17:14] LABS: Basophils % 0.4 % (0.1-2.0); Eosinophils # 0.1 K/mm3 (0.0-0.4); Hematocrit 41.6 % (37.0-47.0); Hemoglobin 13.4 g/dL (12.2-16.2); Lymphocytes # 2.1 K/mm3 (0.7-4.5); Lymphocytes % 37.7 % (10-50); Mean Corpuscular HGB Conc 32.2 g/dL (31.8-35.4); Mean Corpuscular Hemoglobin 27.9 pg (27.0-31.2); Mean Corpuscular Volume 86.5 fl (81-99); Mean Platelet Volume 9.2 fl (7.4-10.4); Monocytes # 0.3 K/mm3 (0.1-1.0); Monocytes % 5.6 % (1.7-9.3); Neutrophils % 54.1 % (37.0-80.0); Platelet Count 319 K/mm3 (142-424); Red Blood Count 4.81 M/mm3 (4.20-5.40); Red Cell Distribution Width 13.5 % (11.5-17.5); White Blood Count 5.6 K/mm3 (4.8-10.8)
[2024-09-11 18:54] LABS: HIV Combo NEGATIVE (Negative)
[2024-09-11 19:01] LABS: Hepatitis C Ab Qual. W/ RFX NEGATIVE (Negative)
== END 2024-09-11 23:59 | disposition home or self-care (01) ==
LOC: LAB.DROPOF 09-12 09:57
PROVIDERS: PCP Nurse Practitioner Family; Visit Provider Nurse Practitioner Family
DX: D50.8 Other iron deficiency anemias (principal); R53.83 Other fatigue; Z11.4 Encounter for screening for human immunodeficiency virus [HIV]; Z11.59 Encounter for screening for other viral diseases
CPT/HCPCS: 82728; 85025; 86803; 87389

== ENCOUNTER 2024-11-13 12:13 | Outpatient (CLI) | payer BC, SELFPAY ==
[2024-11-13 15:01] LABS: Basophils % 0.4 % (0.1-2.0); Eosinophils # 0.2 K/mm3 (0.0-0.4); Eosinophils % 3.2 % (0.1-12.0); Hematocrit 43.2 % (37.0-47.0); Hemoglobin 13.6 g/dL (12.2-16.2); Lymphocytes # 1.5 K/mm3 (0.7-4.5); Lymphocytes % 31.7 % (10-50); Mean Corpuscular HGB Conc 31.5 g/dL (31.8-35.4); Mean Corpuscular Hemoglobin 27.5 pg (27.0-31.2); Mean Corpuscular Volume 87.4 fl (81-99); Mean Platelet Volume 9.5 fl (7.4-10.4); Monocytes # 0.3 K/mm3 (0.1-1.0); Monocytes % 7.1 % (1.7-9.3); Neutrophils # 2.7 K/mm3 (1.8-7.8); Neutrophils % 57.6 % (37.0-80.0); Nucleated Red Blood Cells # 0 10^3/uL; Nucleated Red Blood Cells % 0 %; Platelet Count 308 K/mm3 (142-424); Red Blood Count 4.94 M/mm3 (4.20-5.40); Red Cell Distribution Width 13.4 % (11.5-17.5); Red Cell Distribution Width-SD 43.4 fL; White Blood Count 4.6 K/mm3 (4.8-10.8)
[2024-11-13 15:47] LABS: Hemoglobin A1C 4.8 % (4.0-6.0)
[2024-11-13 16:49] LABS: Alanine Aminotransferase 16 U/L (12-78); Albumin Level 3.9 g/dl (3.5-5.0); Albumin/Globulin Ratio 1.2 (1.1-1.8); Alkaline Phosphatase 62 U/L (38-126); Anion Gap 15.9 mEq/L (5-15); Aspartate Amino Transferase 34 U/L (14-36); Bilirubin,Total 0.4 mg/dl (0.2-1.3); Blood Urea Nitrogen 10 mg/dl (7-17); Carbon Dioxide 25 mmol/L (22.0-30.0); Chloride 107 mmol/L (98-107); Estimated Glomerular Filt Rate 109 ml/min (>60); GFR (African American) 132 ML/MIN (>60); Globulin 3.3 g/dL (1.3-3.2); Glucose 66 mg/dl (74-100); Magnesium 2.1 mg/dl (1.6-2.3); Potassium 3.9 mmoL/L (3.5-5.1); Sodium 144 mmol/L (136-145); Total Protein,Serum 7.2 g/dl (6.3-8.2)
[2024-11-13 17:20] LABS: Thyroid Stimulating Hormone 0.74 uIU/mL (0.465-4.68)
[2024-11-13 17:34] LABS: Total Iron Binding Capacity 325 ug/dL (265-497)
[2024-11-13 17:44] LABS: 25-OH Vitamin D, Total 32.5 ng/mL (30-100)
[2024-11-13 18:12] LABS: Vitamin B12 541 pg/mL (239-931)
[2024-11-13 18:31] LABS: Ferritin 12.8 ng/ml (6.24-137)
[2024-11-13 18:33] LABS: Iron 73 ug/dL (37-170)
--- OUTSIDE RECORDS SUMMARY | 2024-11-14 15:09 | XMS_ITS ---
Care Plan - [facility], [facility] Created on: November 14, 2024 Talha Leanne Zayas : 1980 Sex: Female Author Organization [facility] Address [address] [place] [address] Phone Care Team Providers Care Cigarette Book Maker Name Role Phone Anderson Ruiz MD Unavailable [phone] PEBBLES KIRK MD Unavailable [phone] Evan Kirk MD Primary Care Provider Unavailabl e
--- OUTSIDE RECORDS SUMMARY | 2024-11-14 15:09 | XMS_ITS ---
Author Organization [facility] Address [address] [place] [address] Phone Care Team Providers Care Hydraulic Blocker Name Role Phone Anderson Ruiz MD Unavailable [phone] PEBBLES KIRK MD Unavailable [phone] Evan Kirk MD Primary Care Provider Unavailabl e Problems Includes: Active, inactive, and resolved Problems All Visits Onset Date Resolved Date Provider Condition S tatus Joint Pain in the Right Knee 02/23/2023 Kelly Pate PA-C Active Last Documented On 3 9:02AM ; [facility] Plan of Treatment Pending Tests Order Diagnosis Results Due Ordering P rovider Therapy - Physical Therapy Knee Pain in right knee 0 09/15/23 Oleksandr Song PA-C Last Documented On 4 11:14AM ; [facility] Assessments Includes: Assessments for all patient encounters No Assessments Recorded Medical Equipment - Implanted Devices Includes: Current and historical Devices No Medical Equipment Recorded Medications Includes: Current and historical Medications Current Medications (continue as prescribed) Ferrous Sulfate 324 (65 Fe) MG Oral Tablet Delayed Release 02/15/2023 Provider: CHAS BELLE Diagnosis: Last Documented On 4 10:12AM By Asmita Johansen ; [facility], [facility] Fluticasone Propionate 50 MCG/ACT Nasal Suspension Provider: Diagnosis: Last Documented On 3 9:02AM By Maria Elena Lovett ; [facility] Cetirizine HCl 10 MG Oral Tablet 01/27/2023 Provider : Diagnosis: Last Documented On 4 10:12AM By Asmita Johansen ; [facility], [facility] Mometasone Furoate 0.1% External Ointment 12/24/2022 Provider: Delaney Mclaughlin NP Diagnosis: Last Documented On 3 9:02AM By Maria Elena Lovett ; [facility], [facility] Meloxicam 15 MG Oral Tablet 12/04/2022 Provider: CHAS BELLE Diagnosis: Last Documented On 3 9:02AM By Maria Elena Lovett ; [facility], [facility] Ubrelvy 50 MG Oral Tablet 10/07/2022 Provider: AUREA BELLE Diagnosis: Last Documented On 3 9:02AM By Maira Elena Lovett ; [facility], [facility] Topiramate 25 MG Oral Tablet 10/01/2022 Provider: CHAS BELLE Diagnosis: Last Documented On 3 9:02AM By Maria Elena Lovett ; [facility], [facility] Past Medications on file Aspirin Adult Low Strength 8 1 MG Oral Tablet Delayed Release 08/13/2023 - 09/27/2023 Provider: Anderson Ruiz MD Diagnosis: twice a day Last Documented On 4 9:14AM By Anderson Ruiz ; [facility] oxyCODONE HCl 5 MG Oral Tablet 08/13/2023 - 08/17/2023 Provider: Anderson Ruiz MD Diagnosis: 1 po q 4h 1 tablet by mouth every [address] op pain Last Documented On 4 9:14AM By Anderson Ruiz ; [facility] Ondansetron HCl 4 MG Oral Tablet 08/13/2023 - 08/27/19 24 Provider: Anderson Ruiz MD Diagnosis: 1-2 p o q 6-8h as needed for nausea Last Documented On 4 9:14AM By Anderson Ruiz ; [facility] traMADol HCl 50 MG Oral Tablet 08/13/2023 - 08/23/2023 Provider: Anderson Ruiz MD Diagnosis: 1-2 po q 4-6h PRN for breakthrough post op pain Last Documented On 4 9:14AM By Anderson Ruiz ; [facility] Ferrous Sulfate 324 (65 Fe) MG Oral Tablet Delayed Release 02/15/2023 - 01/11/2024 Provider: CHAS Rico Diagnosis: Last Documented On 4 9:04AM By Asmita Johansen ; [facility] methylPREDNISolone 4 MG Oral Tablet Therapy Pack 01/27/2023 - 01/11/2024 Provider: Diagnosis: Last Documented On 4 9:03AM By Asmita Johansen ; [facility] Cetirizine HCl 10 MG Oral Tablet 01/27/2023 - 01/11/20 24 Provider: Diagnosis: Last Documented On 4 9:04AM By Asmita Johansen ; [facility] Fluticasone Propionate 50 MC G/ACT Nasal Suspension 01/27/2023 - 01/11/2024 Provider: Diagnosis: Last Documented On 4 9:04AM By Asmita Johansen ; [facility] Medications Administered Includes: Administered Medications in patient's chart No Administered Medications Recorded Vital Signs Includes: Vital Signs from 11/15/2023 through 11/14/2024 Vital Name 01/11/2024 09:00A 12/14/2023 09: 13A Height (in) 65 65 Weight (lb) 140 140 Body Mass Index 23.3 23.3 Body Surface Area (m2) 1.7 1.7 Pain Level 0 1 Note: am lc Last Documented: On 01/11/2024 9:04AM ; [facility] On 12/14/2023 9:13AM ; [facility] Results Includes: Results from 11/15/2023 through 11/14/2024 No Results Recorded For Specified Dates History of Present Illness History of Present Illness not supported for this document type No History of Present Illness Recorded Social History Description Last Updated Alcohol use 09/28/2023 Last Documented On 4 8:48AM ; [facility] Caffeine use 09/28/2023 Last Documented On 4 8:48AM ; [facility] No recent change in diet 09/28/2023 Last Documented On 4 8:48AM ; [facility] Not a current smoker. 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 Last Documented On 3 11:03AM ; [facility], [facility] Smoking Status Unknown Procedures and Surgical History Surgical History Last Updated Past Surgical History: - 09/28/2023 Last Documented On 4 8:48AM ; [facility], [facility] History of Past Surgical History: 2022 Last Documented On 3 11:03AM ; [facility] Medical History Includes: Medical History in patient's chart Description Last Updated History of Anemia 02/23/2023 Last Documented On 3 11:03AM ; [facility] Family History Includes: Family History in patient's chart Description Last Updated Maternal grandmother's history of family history of heart disease 09/28/2023 Last Documented On 4 8:48AM ; [facility] Maternal grandfather's history of family history of cancer 02/23/2023 Last Documented On 3 11:03AM ; [facility], [facility] Maternal history of family history of ca ncer 02/23/2023 Last Documented On 3 11:03AM ; [facility] Paternal history of Stroke / Seizures Last Documented On 3 11:03AM ; [facility] Review of Systems Review of Systems not supported for this document type No Review of Systems Recorded Mental Status Description No anxiety Functional Status No Functional Status Recorded Physical Exam Physical Exam not supported for this document type No Physical Exam Recorded Allergies Includes: Active, inactive, and resolved Allergies No Known Allergies Encounters Includes: Encounters from 11/15/2023 through 11/14/2024 Encounter Provider Location Date Check-In Time Check- Out Time Diagnosis Follow Up Anderson Ruiz MD [facility] 4 10:55AM 11:11AM [facility] 4 8:52AM 9:14AM Follow Up [facility] 4 9:03AM 9:31AM Insurance Includes: Active Insurance Policies Plan Name Member ID Group # Subscriber Relationship Effect lizzie Dates 1 - [facility] [id number] Leanne Palencia Self Clinical Notes Includes: Signed Clinical Notes starting from 07/16/2022 * Progress note Date Encounter Last Documented by 02/15/2024 Follow Up Last documented on 02/16/2024; 11:52 AM, Anderson Ruiz MD; [facility], [facility] Active Problems & Conditions - Joint Pain in the Right Knee Chief Complaint The Chief Complaint is: Right Knee Pain. Referred Here Referred by pcp. History of Present Illness HuseyinRhonda Palencia is a 43 year old female. - Allergy list reviewed - Problem list reviewed - Medication list reviewed - - Review of medications documented Follow up right knee after MPFL reconstruction patient is doing well she is back to work without difficulties have little bit of pain with prolonged standing but overall doing well Current Medication - Cetirizine HCl 10 MG Oral Tablet 30 days, 0 refills - Ferrous Sulfate 324 (65 Fe) MG Oral Tablet Delayed Release Tablet, enteric coated 30 days, 0 refills - Fluticasone Propionate 50 MCG/ACT Nasal Suspension 30 days, 0 refills - Meloxicam 15 MG Oral Tablet 30 days, 0 refills - Mometasone Furoate 0.1% External Ointment 7 days, 0 refills - Topiramate 25 MG Oral Tablet 90 days, 0 refills - Ubrelvy 50 MG Oral Tablet 30 days, 0 refills Past Medical/Surgical History Diagnoses: Anemia Surgical: - Past Surgical History: - - Past Surgical History: Social History Not a current smoker. Current diet: No recent change in diet. Caffeine use: Caffeine use. Tobacco use: Tobacco non-user. Alcohol: Alcohol use. Drug Use: Not using drugs. Habits: Not exercising regularly. 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 Allergies - No Known Allergies Family History Paternal: Stroke / Seizures Maternal: Cancer Maternal grandfather's: Cancer Maternal grandmother's: Heart disease Review Of Systems Systemic: No symptoms, not feeling tired, no recent weight loss, and no recent weight gain. Head: Headache. No sinus pain. Eyes: No vision problems, no Cataracts, no Glasses/Contacts, and no Glaucoma. Otolaryngeal: No hearing loss and no tinnitus. Cardiovascular: No chest pain or discomfort, no palpitations, no Hypertension, and no High Cholesterol. Pulmonary: No daytime asthma symptoms and no chronic cough. No wheezing. Gastrointestinal: No heartburn and no abdominal pain. No Indigestion, no Peptic Ulcer, no GI Stomach Bleed, no Ulcers, and no Acid Reflux. Endocrine: No hot flashes, no muscle weakness, no Diabetes, no Hypothyroid, and no Hyperthyroid. Hematologic: No easy bleeding, no tendency for easy bruising, and no Anemia. Musculoskeletal: No Arthritis and no lower back pain. No soft tissue swelling and no localized joint pain. Neurological: No dizziness, no convulsions, and no numbness. Psychological: No anxiety, no emotional lability, no depression, and no insomnia. Not crying for no reason. Skin: No dry skin. No Ulcers, no Scars, and no rash. Allergic and Immunologic: Complaint of seasonal allergic reaction. Physical Findings Right knee shows 0-135 with good stability patellar tracking no effusion no pain normal gait mild quad atrophy is noted compared to the opposite leg Counseling/Education - Tobacco non-user - Use of tobacco assessment performed Plan Continue return to work full duty without restrictions 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 basis continue home exercise program Notes This dictation was done with voice recognition software and may contain errors and omissions. Practice Management Use of tobacco assessment performed Review of medications documented. Care Team - PEBBLES KIRK MD - [employer] * Progress note Date Encounter Last Documented by 01/11/2024 Follow Up Last documented on 01/11/2024; 9:21 AM, Anderson Ruiz MD; [facility] Active Problems & Conditions - Joint Pain in the Right Knee Chief Complaint The Chief Complaint is: Right Knee Pain. Referred Here Referred by pcp. History of Present Illness Leanne Palencia is a 43 year old female. - Allergy list reviewed - Problem list reviewed - Medication list reviewed - - Review of medications documented Follow up MPFL reconstruction right knee doing well now 5 months out she thinks she is ready to try going back to work Current Medication - Cetirizine HCl 10 MG Oral Tablet 30 days, 0 refills - Ferrous Sulfate 324 (65 Fe) MG Oral Tablet Delayed Release 30 days, 0 refills - Fluticasone Propionate 50 MCG/ACT Nasal Suspension 30 days, 0 refills - Meloxicam 15 MG Oral Tablet 30 days, 0 refills - Mometasone Furoate 0.1% External Ointment 7 days, 0 refills - Topiramate 25 MG Oral Tablet 90 days, 0 refills - Ubrelvy 50 MG Oral Tablet 30 days, 0 refills Past Medical/Surgical History Diagnoses: Anemia Surgical: - Past Surgical History: - - Past Surgical History: Social History Not a current smoker. Current diet: No recent change in diet. Caffeine use: Caffeine use. Tobacco use: Tobacco non-user. Alcohol: Alcohol use. Drug Use: Not using drugs. Habits: Not exercising regularly. 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 Allergies - No Known Allergies Family History Paternal: Stroke / Seizures Maternal: Cancer Maternal grandfather's: Cancer Maternal grandmother's: Heart disease Review Of Systems Systemic: No symptoms, not feeling tired, no recent weight loss, and no recent weight gain. Head: Headache. No sinus pain. Eyes: No vision problems, no Cataracts, no Glasses/Contacts, and no Glaucoma. Otolaryngeal: No hearing loss and no tinnitus. Cardiovascular: No chest pain or discomfort, no palpitations, no Hypertension, and no High Cholesterol. Pulmonary: No daytime asthma symptoms and no chronic cough. No wheezing. Gastrointestinal: No heartburn and no abdominal pain. No Indigestion, no Peptic Ulcer, no GI Stomach Bleed, no Ulcers, and no Acid Reflux. Endocrine: No hot flashes, no muscle weakness, no Diabetes, no Hypothyroid, and no Hyperthyroid. Hematologic: No easy bleeding, no tendency for easy bruising, and no Anemia. Musculoskeletal: No Arthritis and no lower back pain. No soft tissue swelling and no localized joint pain. Neurological: No dizziness, no convulsions, and no numbness. Psychological: No anxiety, no emotional lability, no depression, and no insomnia. Not crying for no reason. Skin: No dry skin. No Ulcers, no Scars, and no rash. Allergic and Immunologic: Complaint of seasonal allergic reaction. Physical Findings - Vitals taken 01/11/2024 09:00 am am Height 65 in 48 - 78 Weight 140 lbs 98 - 183 Body Mass Index 23.3 kg/m2 Pain Level 0 Right knee shows full range motion good strength normal gait patellar tracking excursion is normal Counseling/Education - Tobacco non-user - Use of tobacco assessment performed Plan Patient is doing well returned to work 8 hour max per day the 1st month back we will see her back in 6 weeks for final check otherwise she is doing well Notes This dictation was done with voice recognition software and may contain errors and omissions. Practice Management Use of tobacco assessment performed Review of medications documented. Care Team - PEBBLES KIRK MD - [employer]EM[employer] * Progress note Date Encounter Last Documented by 12/14/2023 Follow Up Last documented on 12/16/2023; 1:07 PM, Anderson Ruiz MD; [facility] Active Problems & Conditions - Joint Pain in the Right Knee Chief Complaint The Chief Complaint is: Right Knee Pain. Referred Here Referred by pcp. History of Present Illness Leanne Palencia is a 43 year old female. - Allergy list reviewed - Problem list reviewed - Medication list reviewed - - Review of medications documented Right knee MPFL reconstruction improving she is now about 3 months out strength is still reduce quad atrophy still present she is engaging and PT and doing well Current Medication - Cetirizine HCl 10 MG Oral Tablet 30 days, 0 refills - Cetirizine HCl 10 MG Oral Tablet 30 days, 0 refills - Ferrous Sulfate 324 (65 Fe) MG Oral Tablet Delayed Release 30 days, 0 refills - Ferrous Sulfate 324 (65 Fe) MG Oral Tablet Delayed Release 30 days, 0 refills - Fluticasone Propionate 50 MCG/ACT Nasal Suspension 30 days, 0 refills - Fluticasone Propionate 50 MCG/ACT Nasal Suspension 30 days, 0 refills - Meloxicam 15 MG Oral Tablet 30 days, 0 refills - methylPREDNISolone 4 MG Oral Tablet Therapy Pack 6 days, 0 refills - Mometasone Furoate 0.1% External Ointment 7 days, 0 refills - Topiramate 25 MG Oral Tablet 90 days, 0 refills - Ubrelvy 50 MG Oral Tablet 30 days, 0 refills Past Medical/Surgical History Diagnoses: Anemia Surgical: - Past Surgical History: - - Past Surgical History: Social History Not a current smoker. Current diet: No recent change in diet. Caffeine use: Caffeine use. Tobacco use: Tobacco non-user. Alcohol: Alcohol use. Drug Use: Not using drugs. Habits: Not exercising regularly. 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 Allergies - No Known Allergies Family History Paternal: Stroke / Seizures Maternal: Cancer Maternal grandfather's: Cancer Maternal grandmother's: Heart disease Review Of Systems Systemic: No symptoms, not feeling tired, no recent weight loss, and no recent weight gain. Head: Headache. No sinus pain. Eyes: No vision problems, no Cataracts, no Glasses/Contacts, and no Glaucoma. Otolaryngeal: No hearing loss and no tinnitus. Cardiovascular: No chest pain or discomfort, no palpitations, no Hypertension, and no High Cholesterol. Pulmonary: No daytime asthma symptoms and no chronic cough. No wheezing. Gastrointestinal: No heartburn and no abdominal pain. No Indigestion, no Peptic Ulcer, no GI Stomach Bleed, no Ulcers, and no Acid Reflux. Endocrine: No hot flashes, no muscle weakness, no Diabetes, no Hypothyroid, and no Hyperthyroid. Hematologic: No easy bleeding, no tendency for easy bruising, and no Anemia. Musculoskeletal: No Arthritis and no lower back pain. No soft tissue swelling and no localized joint pain. Neurological: No dizziness, no convulsions, and no numbness. Psychological: No anxiety, no emotional lability, no depression, and no insomnia. Not crying for no reason. Skin: No dry skin. No Ulcers, no Scars, and no rash. Allergic and Immunologic: Complaint of seasonal allergic reaction. Physical Findings - Vitals taken 12/14/2023 09:13 am lc Height 65 in 48 - 78 Weight 140 lbs 98 - 183 Body Mass Index 23.3 kg/m2 Body Surface Area 1.7 m2 Pain Level 1 Right knee full extension 129- flexion with good stability patellar tracking is excellent quad atrophy is 1+ Counseling/Education - Tobacco non-user - Use of tobacco assessment performed Plan Recommend PT with work hardening anticipate return to full duty work without restrictions of the part of January we will see her back in 6 weeks for recheck Notes This dictation was done with voice recognition software and may contain errors and omissions. Practice Management Use of tobacco assessment performed Review of medications documented. Care Team - PEBBLES KIRK MD - [employer]
--- OUTSIDE RECORDS SUMMARY | 2024-11-14 15:09 | XMS_ITS | Clinical Summary ---
Author Organization [facility] Address [address] [place] [address] Phone Care Team Providers Care Cleaner Assistant Name Role Phone Anderson Ruiz MD Unavailable [phone] PEBBLES KIRK MD Unavailable [phone] Evan Kirk MD Primary Care Provider Unavailabl e Reason for Visit and Chief Complaint The Chief Complaint is: Right Knee Pain Problems Includes: Problems addressed during this encounter and other active Problems All Visits Onset Date Resolved Date Provider Condition S tatus Joint Pain in the Right Knee 02/23/2023 Kelly Pate PA-C Active Last Documented On 3 9:02AM ; [facility] Plan of Treatment Continue return to work full duty without restrictions 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 basis continue home exercise program - Last Documented On 02/16/2024 11:52AM ; [facility] Assessments Includes: Assessments from this encounter No Assessments Recorded Medical Equipment - Implanted Devices Includes: Current Devices No Medical Equipment Recorded Medications Includes: Medications discussed during this encounter and other current Medications Current Medications (continue as prescribed) Ferrous Sulfate 324 (65 Fe) MG Oral Tablet Delayed Release 02/15/2023 Provider: CHAS BELLE Diagnosis: Last Documented On 4 10:12AM By Asmita Johansen ; [facility] Fluticasone Propionate 50 MCG/ACT Nasal Suspension Provider: Diagnosis: Last Documented On 3 9:02AM By Maria Elena Lovett ; [facility] Cetirizine HCl 10 MG Oral Tablet 01/27/2023 Provider : Diagnosis: Last Documented On 4 10:12AM By Asmita Johansen ; [facility] Mometasone Furoate 0.1% External Ointment 12/24/2022 Provider: Delaney Mclaughlin NP Diagnosis: Last Documented On 3 9:02AM By Maria Elena Lovett ; [facility] Meloxicam 15 MG Oral Tablet 12/04/2022 Provider: CHAS BELLE Diagnosis: Last Documented On 3 9:02AM By Maria Elena Lovett ; [facility] Ubrelvy 50 MG Oral Tablet 10/07/2022 Provider: AUREA BELLE Diagnosis: Last Documented On 3 9:02AM By Maria Elena Lovett ; [facility] Topiramate 25 MG Oral Tablet 10/01/2022 Provider: CHAS BELLE Diagnosis: Last Documented On 3 9:02AM By Maria Elena Lovett ; [facility] Past Medications on file Aspirin Adult Low Strength 8 1 MG Oral Tablet Delayed Release 08/13/2023 - 09/27/2023 Provider: Anderson Ruiz MD Diagnosis: twice a day Last Documented On 4 9:14AM By Anderson Ruiz ; [facility] oxyCODONE HCl 5 MG Oral Tablet 08/13/2023 - 08/17/2023 Provider: Anderson Ruiz MD Diagnosis: 1 po q 4h 1 tablet by mouth every [address] op pain Last Documented On 4 9:14AM By Anderson Ruiz ; [facility] Ondansetron HCl 4 MG Oral Tablet 08/13/2023 - 08/27/19 24 Provider: Anderson Ruiz MD Diagnosis: 1-2 p o q 6-8h as needed for nausea Last Documented On 4 9:14AM By Anderson Ruiz ; [facility] traMADol HCl 50 MG Oral Tablet 08/13/2023 - 08/23/2023 Provider: Anderson Ruiz MD Diagnosis: 1-2 po q 4-6h PRN for breakthrough post op pain Last Documented On 4 9:14AM By Anderson Ruiz ; [facility] Medications Administered Includes: Administered Medications from this encounter No Administered Medications Recorded Results Includes: Results discussed during this encounter No Results Recorded For Specified Dates History of Present Illness Includes: History of Present Illness from this encounter RAJIV Palencia is a 43 year old female. - Allergy list reviewed - Problem list reviewed - Medication list reviewed - - Review of medications documented Follow up right knee after MPFL reconstruction patient is doing well she is back to work without difficulties have little bit of pain with prolonged standing but overall doing well Social History Description Last Updated Alcohol use 09/28/2023 Last Documented On 4 10:58AM ; [facility] Caffeine use 09/28/2023 Last Documented On 4 10:58AM ; [facility] No recent change in diet 09/28/2023 Last Documented On 4 10:58AM ; [facility] Not a current smoker. 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 On 4 10:58AM ; [facility] Smoking Status Unknown Procedures and Surgical History Includes: Procedures from this encounter Procedures Code Diagnosis Performing Provider Service L ocation Service Date use of tobacco assessment performed 1000F Last Documented On 4 10:58AM ; [facility] review of medications documented 1160F Last Documented On 4 10:58AM ; [facility] Surgical History Last Updated Past Surgical History: - 09/28/2023 Last Documented On 4 10:58AM ; [facility] [facility] History of Past Surgical History: 2022 Last Documented On 4 10:58AM ; [facility] Medical History Includes: Medical History addressed during this encounter Description Last Updated History of Anemia 02/23/2023 Last Documented On 4 10:58AM ; [facility] Family History Includes: Family History addressed during this encounter Description Last Updated Maternal grandmother's history of family history of heart disease 09/28/2023 Last Documented On 4 10:58AM ; [facility] [facility] Maternal grandfather's history of family history of cancer 02/23/2023 Last Documented On 4 10:58AM ; [facility] [facility] Maternal history of family history of ca ncer 02/23/2023 Last Documented On 4 10:58AM ; [facility] Paternal history of Stroke / Seizures Last Documented On 4 10:58AM ; [facility] Review of Systems Includes: Review of Systems from this encounter Systemic: No symptoms, not feeling tired, no [...] and Immunologic: Complaint of seasonal allergic reaction. Mental Status Includes: Mental Status from this encounter Description No anxiety Functional Status Includes: Functional Status from this encounter No Functional Status Recorded Physical Exam Includes: Physical Exam from this encounter Allergies Includes: Active Allergies No Known Allergies Encounters Encounter Provider Location Date Check-In Time Check- Out Time Diagnosis Follow Up Anderson Ruiz MD [facility] 4 10:55AM 11:11AM Insurance Includes: Active Insurance Policies Plan Name Member ID Group # Subscriber Relationship Effect lizzie Dates 1 - [facility] [id number] Leanne Palencia Self Clinical Notes Includes: Clinical Notes from this encounter * Progress note Date Encounter Last Documented by 02/15/2024 Follow Up Last documented on 02/16/2024; 11:52 AM, Anderson Ruiz MD; [facility] [facility] Active Problems & Conditions - Joint Pain [...] drugs. Habits: Not exercising regularly. 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 Allergies - No Known Allergies Family History [...] Care Team - PEBBLES KIRK MD - [employer]
--- OUTSIDE RECORDS SUMMARY | 2024-11-14 15:09 | XMS_ITS | Clinical Summary ---
Author Organization [facility] , [facility] Address [address] [place] [address] Phone Care Team Providers Care Fee Clerk Name Role Phone Anderson Ruiz MD Unavailable [phone] PEBBLES KIRK MD Unavailable [phone] [...] Active Last Documented On 3 9:02AM ; [facility], [facility] Plan of Treatment Patient is doing well returned to work 8 hour max per day the 1st month back we will see her back in 6 weeks for final check otherwise she is doing well - Last Documented On 01/11/2024 9:21AM ; [facility], [facility] Assessments Includes: Assessments from this encounter No Assessments Recorded Medical Equipment - Implanted Devices Includes: Current Devices No Medical Equipment Recorded Medications Includes: Medications discussed during this encounter and other current Medications Discontinued / Stopped on this date CHAS BELLE on 02/15/2023 Ferrous Sulfate 324 (65 Fe) MG Oral Tablet Delayed Release Provider: CHAS BELLE Diagnosis: Last Documented On 4 9:04AM By Asmita Johansen ; [facility], [facility] methylPREDNISolone 4 MG Oral Tablet Therapy Pack Provider: Diagnosis: Last Documented On 4 9:03AM By Asmita Johansen ; [facility], [facility] Cetirizine HCl 10 MG Oral Tablet Provider : Diagnosis: Last Documented On 4 9:04AM By Asmita Johansen ; [facility], [facility] Fluticasone Propionate 50 MCG/ACT Nasal Suspension Provider: Diagnosis: Last Documented On 4 9:04AM By Asmita Johansen ; [facility], [facility] Current Medications (continue as prescribed) Ferrous Sulfate 324 (65 Fe) MG Oral Tablet Delayed Release 02/15/2023 Provider: CHAS BELLE Diagnosis: Last Documented On 4 10:12AM By Asmita Johansen ; [facility], [facility] Fluticasone Propionate 50 MCG/ACT Nasal Suspension Provider: Diagnosis: Last Documented On 3 9:02AM By Maria Elena Lovett ; [facility], [facility] Cetirizine HCl 10 MG Oral Tablet 01/27/2023 Provider : Diagnosis: Last Documented On 4 10:12AM By Asmita Johansen ; [facility], [facility] Mometasone Furoate 0.1% External Ointment 12/24/2022 Provider: Delaney Mclaughlin NP Diagnosis: Last Documented On 3 9:02AM By Maria Elena Lovett ; [facility], [facility] Meloxicam 15 MG Oral Tablet 12/04/2022 Provider: CHAS BELLE Diagnosis: Last Documented On 3 9:02AM By Maria Elena Lovett ; [facility], [facility] Ubrelvy 50 MG Oral Tablet 10/07/2022 Provider: AUREA BELLE Diagnosis: Last Documented On 3 9:02AM By Maria Elena Lovett ; [facility], [facility] Topiramate 25 MG Oral Tablet 10/01/2022 Provider: CHAS BELLE Diagnosis: Last Documented On 3 9:02AM By Maria Elena Lovett ; [facility], [facility] Past Medications on file Aspirin Adult Low Strength 8 1 MG Oral Tablet Delayed Release 08/13/2023 - 09/27/2023 Provider: Anderson Ruiz MD Diagnosis: twice a day Last Documented On 4 9:14AM By Anderson Ruiz ; [facility] oxyCODONE HCl 5 MG Oral Tablet 08/13/2023 - 08/17/2023 Provider: Anderson Ruiz MD Diagnosis: 1 po q 4h 1 tablet by mouth every [address] op pain Last Documented On 4 9:14AM By Anderson Ruiz ; [facility] Ondansetron HCl 4 MG Oral Tablet 08/13/2023 - 08/27/19 Provider: Anderson Ruiz MD Diagnosis: 1-2 p o q 6-8h as needed for nausea Last Documented On 4 9:14AM By Anderson Ruiz ; [facility] traMADol HCl 50 MG Oral Tablet 08/13/2023 - 08/23/2023 Provider: Anderson Ruiz MD Diagnosis: 1-2 po q 4-6h PRN for breakthrough post op pain Last Documented On 4 9:14AM By Anderson Ruiz ; [facility] Medications Administered Includes: Administered Medications from this encounter No Administered Medications Recorded Vital Signs Includes: Vital Signs from this encounter Vital Name 01/11/2024 09:00A Height (in) 65 Weight (lb) 140 Body Mass Index 23.3 Body Surface Area (m2) 1.7 Pain Level 0 Note: am Last Documented: On 01/11/2024 9:04AM ; [facility] Results Includes: Results discussed during this encounter [...] ready to try going back to work Social History Description Last Updated Alcohol use 09/28/2023 Last Documented On 4 9:01AM ; [facility] Caffeine use 09/28/2023 Last Documented On 4 9:01AM ; [facility] No recent change in diet 09/28/2023 Last Documented On 4 9:01AM ; [facility] Not a current smoker. 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, [facility] review of medications documented 1160F Last Documented On 4 9:01AM ; [facility], [facility] Surgical History Last Updated Past Surgical History: - 09/28/2023 Last Documented On 4 9:01AM ; [facility], [facility] History of Past Surgical History: 2022 Last Documented On 4 9:01AM ; [facility], [facility] Medical History Includes: Medical History addressed during this encounter Description Last Updated History of Anemia 02/23/2023 Last Documented On 4 9:01AM ; [facility], [facility] Family History Includes: Family History addressed during this encounter Description Last Updated Maternal grandmother's history of family history of heart disease 09/28/2023 Last Documented On 4 9:01AM ; [facility] Maternal grandfather's history of family history of cancer 02/23/2023 Last Documented On 4 9:01AM ; [facility] Maternal history of family history of ca ncer 02/23/2023 Last Documented On 4 9:01AM ; [facility], [facility] Paternal history of Stroke / Seizures Last Documented On 4 9:01AM ; [facility], [facility] Review of Systems Includes: Review of Systems [...] Time Diagnosis Follow Up Anderson Ruiz MD [facility] 4 8:52AM 9:14AM Insurance Includes: Active Insurance Policies Plan Name Member ID Group # Subscriber Relationship Effect lizzie Dates - [facility] [id number] HuseyinRigobertoVicente Palencia Self Clinical Notes Includes: Clinical Notes from this encounter * Progress note Date Encounter Last Documented by 01/11/2024 Follow Up Last documented on 01/11/2024; 9:21 AM, Anderson Ruiz MD; [facility], [facility] Active Problems & Conditions - Joint Pain in the Right Knee Chief Complaint The Chief Complaint is: Right Knee Pain. Referred Here Referred by pcp. History of Present Illness JaredVicente Palencia is a 43 year old female. [...] drugs. Habits: Not exercising regularly. 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 Allergies - No Known Allergies Family History [...] Care Team - PEBBLES KIRK MD - LAYAWAY CLERK
--- OUTSIDE RECORDS SUMMARY | 2024-11-14 15:09 | XMS_ITS | Clinical Summary ---
Author Organization [facility] Address [address] [place] [address] Phone Care Team Providers Care Gymnastics Coach Or Instructor Name Role Phone Anderson Ruiz MD Unavailable [phone] PEBBLSE KIRK MD Unavailable [phone] [...] Active Last Documented On 3 9:02AM ; [facility] Plan of Treatment Continue PT and follow up in 6 weeks she should be able to get full flexion and improved strength by then and back to normal activities - Last Documented On 10/29/2023 12:52PM ; [facility] Assessments Includes: Assessments from this encounter No Assessments Recorded Medical Equipment - Implanted Devices Includes: Current Devices No Medical Equipment Recorded Medications Includes: Medications discussed during this encounter and other current Medications Current Medications (continue as prescribed) Ferrous Sulfate 324 (65 Fe) MG Oral Tablet Delayed Release 02/15/2023 Provider: CHAS BELLE Diagnosis: Last Documented On 4 10:12AM By Asmita Johansen ; [facility], [facility] Fluticasone Propionate 50 MCG/ACT Nasal Suspension Provider: Diagnosis: Last Documented On 3 9:02AM By Maria Elena Lovett ; [facility], [facility] Cetirizine HCl 10 MG Oral Tablet 01/27/2023 Provider : Diagnosis: Last Documented On 4 10:12AM By Asmita Johansen ; [facility], [facility] Mometasone Furoate 0.1% External Ointment 12/24/2022 Provider: Delaney Mclaughlin NP Diagnosis: Last Documented On 3 9:02AM By Maria Elena Lovett ; [facility], [facility] Meloxicam 15 MG Oral Tablet 12/04/2022 Provider: CHAS BELLE Diagnosis: Last Documented On 3 9:02AM By Maria Elena Lovett ; [facility], [facility] Ubrelvy 50 MG Oral Tablet 10/07/2022 Provider: AUREA BELLE Diagnosis: Last Documented On 3 9:02AM By Maria Elena Lovett ; [facility], [facility] Topiramate 25 MG Oral Tablet 10/01/2022 Provider: CHAS BELLE Diagnosis: Last Documented On 3 9:02AM By Maria Elena Lovett ; [facility], [facility] Past Medications on file Aspirin Adult Low Strength 8 1 MG Oral Tablet Delayed Release 08/13/2023 - 09/27/2023 Provider: Anderson Ruiz MD Diagnosis: twice a day Last Documented On 4 9:14AM By Anderson Ruiz ; [facility], [facility] oxyCODONE HCl 5 MG Oral Tablet 08/13/2023 - 08/17/2023 Provider: Anderson Ruiz MD Diagnosis: 1 po q 4h 1 tablet by mouth every [address] op pain Last Documented On 4 9:14AM By Anderson Ruiz ; [facility], [facility] Ondansetron HCl 4 MG Oral Tablet 08/13/2023 - 08/27/19 24 Provider: Anderson Ruiz MD Diagnosis: 1-2 p o q 6-8h as needed for nausea Last Documented On 4 9:14AM By Anderson Ruiz ; [facility] traMADol HCl 50 MG Oral Tablet 08/13/2023 - 08/23/2023 Provider: Anderson Ruiz MD Diagnosis: 1-2 po q 4-6h PRN for breakthrough post op pain Last Documented On 4 9:14AM By Anderson Ruiz ; [facility] Medications Administered Includes: Administered Medications from this encounter No Administered Medications Recorded Vital Signs Includes: Vital Signs from this encounter Vital Name 10/26/2023 10:02A Height (in) 65 Weight (lb) 140 Body Mass Index 23.3 Body Surface Area (m2) 1.7 Pain Level 0 Note: am Last Documented: On 10/26/2023 10:13A M ; [facility], [facility] Results Includes: Results discussed during this encounter No Results Recorded For Specified Dates History of Present Illness Includes: History of Present Illness from this encounter RAJIV Palencia is a 43 year old female. - Allergy list reviewed - Problem list reviewed - Medication list reviewed Right knee follow up doing well she has had increased motion and feeling better minimal pain at this point Social History Description Last Updated Alcohol use 09/28/2023 Last Documented On 4 10:02AM ; [facility] Caffeine use 09/28/2023 Last Documented On 4 10:02AM ; [facility] No recent change in diet 09/28/2023 Last Documented On 4 10:02AM ; [facility] Not a current smoker. 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 On 4 10:02AM ; [facility], [facility] Smoking Status Unknown Procedures and Surgical History Includes: Procedures from this encounter Procedures Code Diagnosis Performing Provider Service L ocation Service Date use of tobacco assessment performed 1000F Last Documented On 4 10:02AM ; [facility], [facility] review of medications documented 1160F Last Documented On 4 10:02AM ; [facility] Surgical History Last Updated Past Surgical History: - 09/28/2023 Last Documented On 4 10:02AM ; [facility], [facility] Medical History Includes: Medical History addressed during this encounter Description Last Updated History of Anemia 02/23/2023 Last Documented On 4 10:02AM ; [facility] Family History Includes: Family History addressed during this encounter Description Last Updated Maternal grandmother's history of family history of heart disease 09/28/2023 Last Documented On 4 10:02AM ; [facility], [facility] Maternal grandfather's history of family history of cancer 02/23/2023 Last Documented On 4 10:02AM ; [facility] Maternal history of family history of ca ncer 02/23/2023 Last Documented On 4 10:02AM ; [facility], [facility] Paternal history of Stroke / Seizures Last Documented On 4 10:02AM ; [facility] Review of Systems Includes: Review of Systems [...] and no abdominal pain. No Indigestion, no Acid Reflux, no Peptic Ulcer, no GI Stomach Bleed, and no Ulcers. Endocrine: No hot flashes, no muscle weakness, [...] Time Diagnosis Follow Up Anderson Ruiz MD [facility] 4 9:53AM 10:30AM Insurance Includes: Active Insurance Policies Plan Name Member ID Group # Subscriber Relationship Effect lizzie Dates 1 - [facility] [id number] Leanne Palencia Self Clinical Notes Includes: Clinical Notes from this encounter * Progress note Date Encounter Last Documented by 10/26/2023 Follow Up Last documented on 10/29/2023; 12:52 PM, Anderson Ruiz MD; [facility] Active Problems & Conditions - Joint Pain in the Right Knee Chief Complaint The Chief Complaint is: Right Knee Pain. Referred Here Referred by pcp. History of Present Illness Leanne Palencia is a 43 year old female. - Allergy list reviewed - Problem list reviewed - Medication list reviewed Right knee follow up doing well she has had increased motion and feeling better minimal pain at this point Current Medication - Cetirizine HCl 10 MG [...] Anemia Surgical: - Past Surgical History: - Social History Not a current smoker. Current diet: No recent change in diet. Caffeine use: Caffeine use. Tobacco use: Tobacco non-user. Alcohol: Alcohol use. Drug Use: Not using drugs. Habits: Not exercising regularly. 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 Allergies - No Known Allergies Family History [...] and no abdominal pain. No Indigestion, no Acid Reflux, no Peptic Ulcer, no GI Stomach Bleed, and no Ulcers. Endocrine: No hot flashes, no muscle weakness, [...] allergic reaction. Physical Findings - Vitals taken 10/26/2023 10:02 am am Height 65 in 48 - 78 Weight 140 lbs 98 - 183 Body Mass Index 23.3 kg/m2 Pain Level 0 Right knee 09/02/2014 with good stability patellar tracking 1+ quad atrophy Plan Continue PT and follow up in 6 weeks she should be able to get full flexion and improved strength by then and back to normal activities Notes This dictation was done with voice recognition software and may contain errors and omissions. Practice Management Use of tobacco assessment performed Review of medications documented. Care Team - PEBBLES KIRK MD - TRANSFER IRON OPERATOR
--- OUTSIDE RECORDS SUMMARY | 2024-11-14 15:09 | XMS_ITS | Clinical Summary ---
Author Organization [facility] Address [address] [place] [address] Phone Care Team Providers Care Md Do Resident Urgent Care Name Role Phone Anderson Ruiz MD Unavailable [phone] PEBBLES KIRK MD Unavailable [phone] [...] Active Last Documented On 3 9:02AM ; [facility], [facility] Plan of Treatment Recommend PT with work hardening anticipate return to full duty work without restrictions of the part of January we will see her back in 6 weeks for recheck - Last Documented On 12/16/2023 1:07PM ; [facility], [facility] Assessments Includes: Assessments from this encounter No Assessments Recorded Medical Equipment - Implanted Devices Includes: Current Devices No Medical Equipment Recorded Medications Includes: Medications discussed during this encounter and other current Medications Current Medications (continue as prescribed) Ferrous Sulfate 324 (65 Fe) MG Oral Tablet Delayed Release 02/15/2023 Provider: CHAS BELLE Diagnosis: Last Documented On 4 10:12AM By Asmita Johansen ; [facility] Fluticasone Propionate 50 MCG/ACT Nasal Suspension Provider: Diagnosis: Last Documented On 3 9:02AM By Maria Elena Lovett ; [facility] Cetirizine HCl 10 MG Oral Tablet 01/27/2023 Provider : Diagnosis: Last Documented On 4 10:12AM By Asmita Johansen ; [facility], [facility] Mometasone Furoate 0.1% External Ointment 12/24/2022 Provider: Delaney Mclaughlin NP Diagnosis: Last Documented On 3 9:02AM By Maria Elena Lovett ; [facility], [facility] Meloxicam 15 MG Oral Tablet 12/04/2022 Provider: CHAS BELLE Diagnosis: Last Documented On 3 9:02AM By Maria Elena Lovett ; [facility], [facility] Ubrelvy 50 MG Oral Tablet 10/07/2022 Provider: AUREA BELLE Diagnosis: Last Documented On 3 9:02AM By Maria Elena Lovett ; [facility], [facility] Topiramate 25 MG Oral Tablet 10/01/2022 Provider: CHAS BELLE Diagnosis: Last Documented On 3 9:02AM By Maria Elena Lovett ; [facility], [facility] Past Medications on file Aspirin Adult Low Strength 8 1 MG Oral Tablet Delayed Release 08/13/2023 - 09/27/2023 Provider: Anderson Ruiz MD Diagnosis: twice a day Last Documented On 4 9:14AM By Anderson Ruiz ; [facility], [facility] oxyCODONE HCl 5 MG Oral Tablet 08/13/2023 - 08/17/2023 Provider: Anderson Ruiz MD Diagnosis: 1 po q 4h 1 tablet by mouth every [address] op pain Last Documented On 4 9:14AM By Anderson Ruiz ; [facility], [facility] Ondansetron HCl 4 MG Oral Tablet 08/13/2023 - 08/27/19 24 Provider: Anderson Ruiz MD Diagnosis: 1-2 p o q 6-8h as needed for nausea Last Documented On 4 9:14AM By Anderson Ruiz ; [facility], [facility] traMADol HCl 50 MG Oral Tablet 08/13/2023 - 08/23/2023 Provider: Anderson Ruiz MD Diagnosis: 1-2 po q 4-6h PRN for breakthrough post op pain Last Documented On 4 9:14AM By Anderson Ruiz ; [facility], [facility] Medications Administered Includes: Administered Medications from this encounter No Administered Medications Recorded Vital Signs Includes: Vital Signs from this encounter Vital Name 12/14/2023 09:13A Height (in) 65 Weight (lb) 140 Body Mass Index 23.3 Body Surface Area 1.7 Pain Level 1 Note: lc Last Documented: On 12/14/2023 9:13AM ; [facility] Results Includes: Results discussed during this encounter [...] is engaging and PT and doing well Social History Description Last Updated Alcohol use 09/28/2023 Last Documented On 4 9:08AM ; [facility] Caffeine use 09/28/2023 Last Documented On 4 9:08AM ; [facility], [facility] No recent change in diet 09/28/2023 Last Documented On 4 9:08AM ; [facility], [facility] Not a current smoker. 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 Last Documented On 4 9:08AM ; [facility], [facility] Smoking Status Unknown Procedures and Surgical History Includes: Procedures from this encounter Procedures Code Diagnosis Performing Provider Service L ocation Service Date use of tobacco assessment performed 1000F Last Documented On 4 9:08AM ; [facility], [facility] review of medications documented 1160F Last Documented On 4 9:08AM ; [facility] Surgical History Last Updated Past Surgical History: - 09/28/2023 Last Documented On 4 9:08AM ; [facility], [facility] History of Past Surgical History: 2022 Last Documented On 4 9:08AM ; [facility], [facility] Medical History Includes: Medical History addressed during this encounter Description Last Updated History of Anemia 02/23/2023 Last Documented On 4 9:08AM ; [facility], [facility] Family History Includes: Family History addressed during this encounter Description Last Updated Maternal grandmother's history of family history of heart disease 09/28/2023 Last Documented On 4 9:08AM ; [facility], [facility] Maternal grandfather's history of family history of cancer 02/23/2023 Last Documented On 4 9:08AM ; [facility] Maternal history of family history of ca ncer 02/23/2023 Last Documented On 4 9:08AM ; [facility], [facility] Paternal history of Stroke / Seizures Last Documented On 4 9:08AM ; [facility], [facility] Review of Systems Includes: Review of [...] Time Diagnosis Follow Up Anderson Ruiz MD [facility] 4 9:03AM 9:31AM Insurance Includes: Active Insurance Policies Plan Name Member ID Group # Subscriber Relationship Effect lizzie Dates - [facility] [id number] Leanne Chana Palencia Self Clinical Notes Includes: Clinical Notes from this encounter * Progress note Date Encounter Last Documented by 12/14/2023 Follow Up Last documented on 12/16/2023; 1:07 PM, Anderson Ruiz MD; [facility], [facility] Active Problems & Conditions - Joint Pain in the Right Knee Chief Complaint The Chief Complaint is: Right Knee Pain. Referred Here Referred by pcp. History of Present Illness Leanne Talha is a 43 year old female. - [...] Habits: Not exercising regularly. 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 Allergies - No Known Allergies Family History [...] duty work without restrictions of the part january we will see her back in 6 weeks for recheck Notes This dictation was done with voice recognition software and may contain errors and omissions. Practice Management Use of tobacco assessment performed Review of medications documented. Care Team - PEBBLES KIRK MD - MULE SPINNER
--- OUTSIDE RECORDS SUMMARY | 2024-11-14 15:09 | XMS_ITS | Data Portability ---
Author Organization [facility] MAURA Kahn [place] CLOSED Address [address] [place] [address] Care Team Providers Care Spray Machine Loader Name Role Phone CHAS LEONARDO Primary Care Provider [phone] Assessment No assessment recorded. Plan of Treatment Reminders Order Date Submit Date Provider Last Modified By Organization Details Last Modified Time Details Appointments None record ed. Lab None record ed. Referral None record ed. Procedures None record ed. Surgeries None record ed. Imaging None record ed. Medication Orders None record ed. Patient TargetsNo targets recorded. Patient InstructionsNo instructions recorded. Reason for Referral None Reported. Procedures Surgical History Date Name Laterality Status Provider Name and Address Organization Details Recorded Time Date of Last Mammogram completed Yesenia Bell [facility] 08/30/2024 09:25:34 Imaging Results None recorded. Procedure Notes None recorded. Medical Equipment None Reported. Allergies No known drug allergies Medications Name Sig Start Date Stop Date Status Note LastModified by Organization Details LastModified Time trazodone 50 mg tablet Take 1 tablet every day by oral route as directed. active Not Available Not Available No t Available Iron (ferrous sulfate) 325 mg (65 mg iron) tablet Take 1 tablet every day by oral route as directed. active Not Available Not Available No t Available amitriptylin e 10 mg tablet Take 1 tablet every day by oral route as directed. active Not Available Not Available No t Available multivitamin OTC daily active Not Available N ot Available Not Available Allergy Relief (fluticasone ) 50 mcg/actuatio n nasal spray,suspen marta [place] 1 spray every day by intranasal route as directed. active Not Available Not Available No t Available Ubrelvy 100 mg tablet Take 1 tablet every day by oral route as needed. active Not Available Not Available No t Available Vitals Date Recorded Body weight Heart rate Oxygen saturation Oxygen saturation in Arterial blood by Pulse oximetry Systolic blood pressure Diastolic blood pressure Provider Name and Address Organization Details Last Updated DateTime 5 50016.4 8 g 66 /min 100 % 100 % 104 mm[Hg] 70 mm[Hg] Yesenia Bell [facility] 09:34:05 Social History Question Answer Notes LastModified by Organizat ion Details LastModified Time Tobacco Smoking Status Former Smoker Yesenia Bell [facility] 08/30/2024 09:25:23 What Is Your Level Of Alcohol Consumption? Occasional [email or web address] Information not available 08/30/2024 How Many Times Per Week Do You Consume Alcohol? 1-2 Times Per Week [email or web address] Information not available 08/30/2024 Are You Currently Employed? 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 1-5yearssincel astcigarette [email or web address] Information not available 08/30/2024 What Was The Date Of Your Most Recent Tobacco Screening? 08/30/2024 [email or web address] Information not available 08/30/2024 Do You Use Any Illicit Or Recreational Drugs? No [email or web address] Information not available 08/30/2024 Sex: Unknown Functional Status None recorded. Mental Status None recorded. Family History Relationship Description Onset Age of this Age Resolved Age Notes LastModified by Organization Details LastModified Time Mother Malignant tumor of kidney Not available 2024 09:24:21 Father Cerebrovascu lar accident [email or web address] Not available 09:24:28 Sister Hypertensive disorder [email or web address] Not available 2024 09:24:38 Medical History Condition Response Other Gynecological History Statement/Question Response # of Pregnancies 2 Age at Menarche 13 Date of Last Mammogram 08/07/2024 # of Births 2 Obstetrics History GPAL:G 2 P 0 0 0 0 Past Encounters Encounter ID Performer Location Encounter Start Date Encounter Closed Date Diagnosis/Indication Diagnosis SNOMED-CT Code Diagnosis ICD10 Code Diagnosis Note [id number] RYDER DOMINGUEZ APRN BREAST SURGERY [address] [place] [address] 08/30/2024 08:56:38 09/04/2024 10:44:35 Cyst of left breast 8350972313 [id number] N60.02 Patient and I reviewed her symptoms, outside imaging and reports, and today's physical exam findings. There is a palpable lump in the left upper outer quadrant that both patient and I can feel. This is consistent with the simple anechoic avascular cyst appreciate d on her recent mammogram and left ultrasound . Patient reassured, but encouraged to return if area enlarges. I encouraged her to repeat left US in 6 months as recommende d for stability of area. There are no clinical abnormalit ies in the right breast, but mammogram did show multiple oval masses, likely also cysts. She was encouraged to keep follow-up with local imaging center for right breast US as recommende d. Discussed strategies to help manage dense, tender, fibrocysti c breasts including Vitamin E and avoidance of caffeine. She may continue imaging as recommende d at local hospital and see our office on an as-needed basis. She v/u and agrees with plan. Heterogene ously dense breast composition 296156488 R92.333 Health Concerns Section Related Observation LastModified by Organization Detai ls LastModified Time None Recorded Concern Status LastModified by Organization Details LastModified Time None Recorded Advance Directives Directive None Recorded Payers Encounter Date Sequence Insurance Name Policy Number Policy Love Covered Member ID Love Member ID Guarantor Name 08/30/2024 1 [place] [id number] Huseyin Baez Talha [id number] Huseyin Baez Talha Notes Date Note Type Note Provider Name and Address Organization Details Recorded Time 08/30/2024 text/html Huseyin Palencia is a 44 yo female, new to our office, referred by Chas Leonardo APRN for second opinion regarding left breast lump and bilateral breast tenderness. Patient c/o long-standing cyclic bilateral breast tenderness around her periods. She reports noticing a palpable lump in the left breast within the last month. She discussed this with her regular provider who sent her for bilateral diagnostic mammogram and left breast ultrasound at [facility] on 08/07/2024. This is her first ever mammogram. Imaging reports and images have been Powershared and reviewed. Imaging resulted BiRADS 0 with a 1.2 cm anechoic avascular simple cyst at 2:00 4 cm from nipple in left breast palpable area of concern (recommended to repeat LT US in 6 months). There were oval masses also appreciated in the right breast upper inner quadrant on the mammogram. Right breast ultrasound has been ordered, but is not yet scheduled. Patient notes she started her period 2 days after her imaging and tenderness has improved since that time. The left breast palpable lump (cyst on US) feels unchanged to her. She denies skin or nipple changes. Risk factors: , menarche at age 13, 1st baby at age 21. Premenopausal, retains uterus and ovaries, LMP 08/09/2024. No breast surgeries or biopsies in past. OCPs x 4 years in the past, no hormonal medications currently. Family history negative for breast cancer, mom with renal cell carcinoma. Lifetime risk for breast cancer = 15.25% by Gabrielle, v8 per assessment today. RYDER DOMINGUEZ, BOTTOM PRECIPITATOR OPERATOR [address] [place], [address], [place] [facility] 09/04/2024 10:44:12 OBGyn Episode No OBEpisode recorded.
--- OUTSIDE RECORDS SUMMARY | 2024-11-14 15:09 | XMS_ITS | Clinical Summary ---
Author Organization [facility] Address [address] [place] [address] Phone Care Team Providers Care Joint Terminal Attack Controller Name Role Phone Anderson Ruiz MD Unavailable [phone] PEBBLES KIRK MD Unavailable [phone] Evan Kirk MD Primary Care Provider Unavailabl e Reason for Visit and Chief Complaint [Patient Encounter] Problems Includes: Problems addressed during this encounter and other active Problems All Visits Onset Date Resolved Date Provider Condition S tatus Joint Pain in the Right Knee 02/23/2023 Kelly Pate PA-C Active Last Documented On 3 9:02AM ; [facility] Plan of Treatment No Plan of Treatment Recorded Assessments Includes: Assessments from this encounter No Assessments Recorded Medical Equipment - Implanted Devices Includes: Current Devices No Medical Equipment Recorded Medications Includes: Medications discussed during this encounter and other current Medications Current Medications (continue as prescribed) Ferrous Sulfate 324 (65 Fe) MG Oral Tablet Delayed Release 02/15/2023 Provider: CHAS BELLE Diagnosis: Last Documented On 4 10:12AM By Asmita Johansen ; [facility] Fluticasone Propionate 50 MCG/ACT Nasal Suspension Provider: Diagnosis: Last Documented On 3 9:02AM By Maria Elena Lovett ; [facility] Cetirizine HCl 10 MG Oral Tablet 01/27/2023 Provider : Diagnosis: Last Documented On 4 10:12AM By Asmita Johansen ; [facility] Mometasone Furoate 0.1% External Ointment 12/24/2022 Provider: Delaney Mclaughlin NP Diagnosis: Last Documented On 3 9:02AM By Maria Elena Lovett ; [facility] Meloxicam 15 MG Oral Tablet 12/04/2022 Provider: CHAS BELLE Diagnosis: Last Documented On 3 9:02AM By Maria Elena Lovett ; [facility] Ubrelvy 50 MG Oral Tablet 10/07/2022 Provider: AUREA BELLE Diagnosis: Last Documented On 3 9:02AM By Maria Elena Lovett ; [facility] Topiramate 25 MG Oral Tablet 10/01/2022 Provider: CHAS BELLE Diagnosis: Last Documented On 3 9:02AM By Maria Elena Lovett ; [facility] Medications Administered Includes: Administered Medications from this encounter No Administered Medications Recorded Results Includes: Results discussed during this encounter No Results Recorded For Specified Dates History of Present Illness Includes: History of Present Illness from this encounter No History of Present Illness Recorded Social History No Social History Recorded - Smoking Status Unknown Medical History Includes: Medical History addressed during this encounter No Medical History Recorded Family History Includes: Family History addressed during this encounter No Family History Recorded Review of Systems Includes: Review of Systems from this encounter No Review of Systems Recorded Mental Status Includes: Mental Status from this encounter No Mental Status Recorded Functional Status Includes: Functional Status from this encounter No Functional Status Recorded Physical Exam Includes: Physical Exam from this encounter No Physical Exam Recorded Allergies Includes: Active Allergies No Known Allergies Encounters Encounter Provider Location Date Check-In Time Check-Out Time Diagnosis [Patient Encounter] Anderson Ruiz MD 10/06/2023 12:00PM 11:59PM Insurance Includes: Active Insurance Policies Plan Name Member ID Group # Subscriber Relationship Effect lizzie Dates - [facility] [id number] Leanne Palencia Self Clinical Notes Includes: Clinical Notes from this encounter No Clinical Notes Recorded
== END 2024-11-13 23:59 | disposition home or self-care (01) ==
LOC: LAB.DROPOF 11-14 15:08
PROVIDERS: PCP Nurse Practitioner Family; Visit Provider Nurse Practitioner Family
DX: D50.8 Other iron deficiency anemias (principal); R53.83 Other fatigue; G43.909 Migraine, unspecified, not intractable, without status migrainosus; E53.9 Vitamin B deficiency, unspecified; R79.89 Other specified abnormal findings of blood chemistry
CPT/HCPCS: 80053; 82306; 82607; 82728; 83036; 83540; 83550; 83735; 84443; 85025

== ENCOUNTER 2025-02-16 15:46 | Outpatient (CLI) | payer BC, SELFPAY ==
--- OUTSIDE RECORDS SUMMARY | 2025-02-16 15:48 | XMS_ITS | Clinical Summary ---
[facility] Address [address] [place] [address] Care Team Providers Care Certified Art Therapist Name Role Phone Glen Leal MD Primary Care Provider [phone] Allergies No known active allergies Medications Topiramate (TOPAMAX PO) Take by mouth. Active azithromycin (ZITHROMAX Z-LINDA) 250 MG tablet Take 2 tablets the first day, then 1 tablet daily for 4 days. 6 tablet 12/31/2017 Active Family History Medical History Relation Name Comments Cancer Mother Relation Name Status Comments Mother renal cancer Social History Tobacco Use Types Packs/Day Years Used Date Smoking Tobacco: Never Abuse Screen Answer Date Recorded Unsafe at Home or Work/School Not on file Feels Threatened by Someone? Not on file 04/2023 Does Anyone Keep You from Co ntacting Others or Doint Things Outside the Home? Not on file 05/10/2023 Physical Sign of Abuse Present Not on file 1 Housing Stability Answer Date Recorded Current Living Arrangements Not on file 04/2023 Potentially Unsafe Housing Conditions Not on mansi e 05/10/2023 Family and Community Support Answer Mike e Recorded Help with Day-to-Day Activities Not on file 05/10/2023 Lonely or Isolated Not on file 05/10/2023 Employment Answer Date Recorded Do you want help finding or keeping work or a annia b? Not on file 05/10/2023 Disabilities Answer Date Recorded Concentrating, Remembering, or Making Decisions Difficulty Not on file 05/10/2023 Doing Errands Independently Difficulty Not on fi le 05/10/2023 Education Answer Date Recorded Help with school or training? Not on file Preferred Language Not on file 05/10/2023 Comments No Sex and Gender Information Value Date Recorded Sex Assigned at Not on file Legal Sex Female 1:05 PM EDT Gender Identity Not on file Sexual Orientation Not on file Last Filed Vital Signs Vital Sign Reading Time Taken Comments Blood Pressure 90/60 02/19/2019 5:02 PM EDT Pulse 89 02/19/2019 5:02 PM EDT Temperature 37.4 C (99.3 F) 02/19/2019 5:02 PM EDT Respiratory Rate 20 02/19/2019 5:02 PM EDT Oxygen Saturation 99% 02/19/2019 5:02 PM EDT Inhaled Oxygen Concentration - - Weight 65.8 kg (145 lb) 02/19/2019 5:02 PM EDT Height 165.1 cm (5' 5 ) 02/19/2019 5:02 PM EDT Body Mass Index 24.13 02/19/2019 5:02 PM EDT Plan of Treatment Health Maintenance Due Date Last Done Comments Annual Gynecologic Pelvic an d Breast Exam 1981 TDAP/TD VACCINES (1 - Tdap) 2000 ANNUAL PHYSICAL 11/27/2017 HEPATITIS C SCREENING 11/27/2017 MAMMOGRAM 2021 COVID-19 Vaccine ( - 2023-2 5 season) 2024 INFLUENZA VACCINE 05/02/2025 Pneumococcal Vaccine 0-49 Aged Out No longer eligible based on patient's age to complete this topic Insurance [facility] PPO Care Teams Certified Art Therapist Relationship Specialty Start Date End Date Glen Leal MD [address] [place] [address] PCP - General Family Medicine 11/27/17
[2025-02-16 16:11] LABS: Hematocrit 43.5 % (37.0-47.0); Hemoglobin 13.7 g/dL (12.2-16.2); Immature Granulocytes % 0.2 %; Mean Corpuscular HGB Conc 31.5 g/dL (31.8-35.4); Mean Corpuscular Hemoglobin 27.7 pg (27.0-31.2); Mean Corpuscular Volume 88.1 fl (81-99); Nucleated Red Blood Cells % 0 %; Platelet Count 271 K/mm3 (142-424); Red Blood Count 4.94 M/mm3 (4.20-5.40); Red Cell Distribution Width-SD 42.0 fL; White Blood Count 4.7 K/mm3 (4.8-10.8)
[2025-02-16 16:51] LABS: Alanine Aminotransferase 9 U/L (12-78); Albumin Level 4.4 g/dl (3.5-5.0); Albumin/Globulin Ratio 1.6 (1.1-1.8); Anion Gap 11.4 mEq/L (5-15); Aspartate Amino Transferase 28 U/L (14-36); Bilirubin,Total 0.6 mg/dl (0.2-1.3); Blood Urea Nitrogen 11 mg/dl (7-17); Calcium 9.5 mg/dl (8.4-10.2); Carbon Dioxide 27 mmol/L (22.0-30.0); Chloride 104 mmol/L (98-107); Creatinine,Serum 0.70 mg/dl (0.52-1.04); Estimated Glomerular Filt Rate 91 ml/min (>60); GFR (African American) 111 ML/MIN (>60); Globulin 2.8 g/dL (1.3-3.2); Glucose 90 mg/dl (74-100); Potassium 4.4 mmoL/L (3.5-5.1); Sodium 138 mmol/L (136-145); Total Protein,Serum 7.2 g/dl (6.3-8.2)
[2025-02-16 16:56] LABS: C-Reactive Protein 2.8 mg/L (0-4)
[2025-02-16 17:13] LABS: Alkaline Phosphatase 48 U/L (38-126)
[2025-02-16 18:05] LABS: Ferritin 15.1 ng/ml (6.24-137)
[2025-02-19 15:10] LABS: Antinuclear Antibodies (ANA) Negative (Negative)
== END 2025-02-16 23:59 | disposition home or self-care (01) ==
LOC: LAB 15:47
PROVIDERS: PCP Nurse Practitioner Family; Visit Provider Nurse Practitioner Family
DX: D50.9 Iron deficiency anemia, unspecified (principal); L65.9 Nonscarring hair loss, unspecified
CPT/HCPCS: 36415; 80053; 82728; 85025; 86140

== ENCOUNTER 2025-02-17 11:09 | Outpatient (CLI) | payer BC, SELFPAY ==
--- OUTSIDE RECORDS SUMMARY | 2025-02-17 11:12 | XMS_ITS | Clinical Summary ---
[facility] Address [address] [place] [address] Care Team Providers Care Plater Helper Name Role Phone Geln Leal MD Primary Care Provider [phone] Allergies No known active allergies Medications Topiramate [...] patient's age to complete this topic Insurance [facility] PPO Care Teams Plater Helper Relationship Specialty Start Date End Date Glen Leal MD [address] [place] [address] PCP - General Family Medicine 11/27/17
== END 2025-02-17 23:59 | disposition home or self-care (01) ==
LOC: LAB 11:10
PROVIDERS: PCP Nurse Practitioner Family; Visit Provider Nurse Practitioner Family
DX: R14.0 Abdominal distension (gaseous) (principal)
CPT/HCPCS: 83013

== ENCOUNTER 2025-03-07 14:34 | Outpatient (CLI) | payer BC, SELFPAY ==
--- OUTSIDE RECORDS SUMMARY | 2025-03-07 14:36 | XMS_ITS | Clinical Summary ---
[facility] Address [address] [place] [address] Care Team Providers Care Human Resources Mgr Name Role Phone Glen Leal MD Primary Care Provider [phone] Allergies No known active allergies Medications Topiramate [...] patient's age to complete this topic Insurance [facility] PPO Care Teams Human Resources Mgr Relationship Specialty Start Date End Date Glen Leal MD [address] [place] [address] PCP - General Family Medicine 11/27/17
--- NOTE | 2025-03-07 14:45 | US_ITS ---
PROCEDURE INFORMATION: Exam: US Left Breast, Complete Exam date and time: 03/07/2025 2:29 PM Age: 44 years old Clinical indication: Left breast lump TECHNIQUE: Imaging protocol: Complete ultrasound of all four quadrants of the left breast and the retroareolar regions, including ultrasound of the axilla when performed. COMPARISON: US BREAST LT COMPLETE 08/07/2024 9:27 AM FINDINGS: ULTRASOUND: Breast ultrasound findings: Sonographic images of the left breast including the retroareolar region, all 4 quadrants and the axilla do not demonstrate any solid masses. Scattered benign cysts are present measuring several mm to a dominant left 1.4 cm 2 o'clock axis cyst 4 cm from the nipple corresponding to the patient's complaint of a palpable abnormality. No architectural distortion or acoustical shadowing. No skin thickening or axillary adenopathy. IMPRESSION: No sonographic evidence of malignancy. Patient's complaint of a palpable abnormality in the left 2 o'clock axis 4 cm from the nipple corresponds to a benign cyst. Annual mammographic screening is recommended unless otherwise clinically indicated. Further evaluation of a palpable abnormality should be based on clinical grounds regardless of radiographic findings or lack thereof. ASSESSMENT: BI-RADS Category 2: Benign.
== END 2025-03-07 23:59 | disposition home or self-care (01) ==
LOC: RAD 14:34
PROVIDERS: PCP Nurse Practitioner Family; Visit Provider Nurse Practitioner Family
DX: N60.02 Solitary cyst of left breast (principal)
CPT/HCPCS: 76641